=== PATIENT | female | born 1950 | race Caucasian/White ===

== ENCOUNTER → 2016-02-17 | Outpatient (CLI) | payer MEDICARE ==
--- NOTE | 2016-02-17 10:05 | XR ---
EXAMINATION TYPE: XR sacrum coccyx DATE OF EXAM: 02/17/2016 9:45 AM COMPARISON: NONE HISTORY: Low back pain following fall TECHNIQUE: 3 views sacrum and coccyx FINDINGS: Sacroiliac joint vacuum phenomenon and degenerative changes are noted. No suspicious fractu res are evident. IMPRESSION: 1. Normal sacrum and coccyx. 2. Sacroiliac joint degenerative changes
--- NOTE | 2016-02-17 10:07 | XR ---
EXAMINATION TYPE: XR lumbar spine 2 or 3V DATE OF EXAM: 02/17/2016 9:44 AM COMPARISON: NONE HISTORY: Fall, low back pain TECHNIQUE: 3 view lumbar spine FINDINGS: Postsurgical changes are present L2-L3 with pedicle screws and fixation rods. Laminectomies have been performed at L2, L3, L4. Bone buttressing is present laterally. Disc spacers present L3-L4 . L5 lumbar level is poorly visualized. There may be fusion of L5 with S1 and partial fusion of L4 wi th L5. Vacuum disc phenomenon is present L1-L2 IMPRESSION: Lumbar spine degenerative changes. Congenital anomalies may be present. No acute abnormal ity is evident.
--- NOTE | 2016-02-17 10:08 | XR ---
EXAMINATION TYPE: XR pelvis AP view DATE OF EXAM: 02/17/2016 9:44 AM COMPARISON: NONE HISTORY: Fall, pain TECHNIQUE: Single AP pelvis FINDINGS: Sacroiliac joint degenerative changes are present. Symphysis pubis appears within normal li mits. No acute fractures are evident. Femoral heads articulate with the acetabulum. IMPRESSION: 1. No acute osseous abnormality pelvis
== END | disposition home or self-care (01) ==
LOC: RADXRMAIN 09:13
PROVIDERS: ATTEND Family Medicine
DX: M53.3 Sacrococcygeal disorders, not elsewhere classified (principal); M51.36 Other intervertebral disc degeneration, lumbar region
CPT/HCPCS: 72100; 72170; 72220

== ENCOUNTER 2016-03-22 08:50 | Day surgery (SDC) | payer MEDICARE ==
[~2016-03-22 08:50] MED LIST: LACTATED RINGERS 1,000 ML IV SCH
[2016-03-22] MEDS ORDERED: LIDOCAINE 1% 20 ML VIAL (10MG/ML) FOR IV START INTRADERMA ONE (08:56)
[2016-03-22 09:20] VITALS: TEMP 97.9
[2016-03-22 09:20] LABS: Glucose,Whole Blood 122 mg/dL (75-99)
[2016-03-22] MEDS ORDERED: MIDAZOLAM 2 MG/2 ML VIAL ONE (09:44)
[2016-03-22] MEDS ORDERED: fentaNYL (PF) 50 MCG/ML 2 ML AMP ONE (09:44)
[2016-03-22] MEDS ORDERED: IOHEXOL 180 MG/ML 1 ML ML ONE (09:44)
--- NOTE | 2016-03-22 10:25 | P.PCN ---
Date of Procedure: 03/22/16 Procedure(s) Performed: PREOPERATIVE DIAGNOSIS: 1- failed back surgery syndrome lumbar area. 2-opioid Tolerance POSTOPERATIVE DIAGNOSIS: Same as preoperative diagnosis. PROCEDURE 1. Intrathecal pain pump trial under fluoroscopy guidance 2. Lumbar epidurogram. ANESTHESIA: Local with 1% lidocaine 3 ml and IV sedation with Versed 2 mg , and fentanyle 100 Mcg EBL: Minimal PROCEDURE INDICATION: The patient with low back pain and radiculitis symptoms unresponsive to conservative treatment. Patient had multiple pain management interventions failed to control her pain, patient had a spinal cord stimulator trial, and it was not successful, and interview patient currently on fentanyl patch 50 mcg and Percocet 7.5/325 and patient continued to have severe low back pain, patient will be good candidate to have intrathecal pain pump Fluoroscopy was used to optimize visualization of the needle placement and to maximize safety. PROCEDURE DESCRIPTION / TECHNIQUE: The patient was seen and identified in the preoperative area. Risks, benefits , complications including but not limited to infections ,bleeding ,allergic reaction to the medications ,nerve damage and not complete pain releife , and alternatives were discussed with the patient. The patient agreed to proceed with the procedure and signed the consent. IV was started, and vital signs were stable. Patient was taken to the OR and time out was completed. The patient was placed in the prone position on procedure table and a pillow was placed under the abdomen to reduce lumbar lordosis. The lumbosacral area was prepped and draped in the usual sterile fashion.ere closely monitored during the procedure. Conscious sedation was used during the procedure to decrease patients anxiety. Vital signs was monitered during the entire procedure. Using anterior-posterior fluoroscopy, the L1-2 interlaminar space was identified and the skin over this site was marked and then infiltrated with 1% lidocaine subcutaneously. Subsequently, a 22-gauge quinti type needle was inserted and advanced toward the intrathecal space ,there was positive cerebrospinal fluid, and it was clear fluid , I checked the needle placement with AP and lateral fluoroscopy. The correct needle position in the intrathecal space was verified with the injection of 2 mL of the water soluble contrast dye Omnipaque 180 contrast and observing an excellent spread of the dye, in the absence of paresthesia and in the presence of free flow of cerebrospinal fluid Dilaudid 0.5 mg and 2 ml of preservative free Normal Saline, mixed together and the total volume was 2.5 ML solution was injected . Needle was withdrawn intact, skin was cleansed, and bandages were applied. COMPLICATIONS: None DISPOSITION / PLANS: The patient was placed in a supine position and transferred to the recovery area in a stable condition for observation. There was no evidence of lower extremity motor or sensory deficit after the procedure. Patient was discharged from the recovery room after meeting discharge criteria. Home discharge instructions were given to the patient by the staff. The patient was reexamined prior to discharge. The patient will schedule a follow up in the clinic in 2-4 weeks.
[2016-03-22] MEDS ORDERED: LACTATED RINGERS 1,000 ML IV ONE (10:28)
--- NOTE | 2016-03-22 10:28 | FL ---
EXAMINATION TYPE: FL guided pain mgmt statistic DATE OF EXAM: 03/22/2016 10:21 AM HISTORY: Flouroscopy time 23 seconds of fluoroscopy provided. IMPRESSION: 1. Fluoroscopy time.
[2016-03-22 11:01] VITALS: RESP 16
[2016-03-22] MEDS ORDERED: oxyCODONE-APAP 10-325MG 1 EACH TAB PO PRN (12:08)
[2016-03-22] MEDS ORDERED: oxyCODONE-APAP 5-325MG 1 EACH TAB PO ONE (13:12)
[2016-03-22] MEDS ORDERED: oxyCODONE-APAP 5-325MG 1 EACH TAB PO STA (13:18)
[2016-03-22 13:47] VITALS: BP 115/58; PULSE 80
== END 2016-03-22 14:04 | disposition home or self-care (01) ==
LOC: ORPAIN 08:50
PROVIDERS: ATTEND Specialist
DX: M96.1 Postlaminectomy syndrome, not elsewhere classified (principal); Z79.891 Long term (current) use of opiate analgesic; M54.5 Low back pain; M54.16 Radiculopathy, lumbar region
CPT/HCPCS: 99152; 99153; 62350; J2250; Q9965; J3010

== ENCOUNTER → 2016-03-24 | Outpatient (CLI) | payer MEDICARE ==
[2016-03-24 10:41] VITALS: BP 104/60; PULSE 80; RESP 14; TEMP 97.6
--- NOTE | 2016-03-24 12:24 | P.PN ---
Progress Note - Text Patient returns for followup for chronic back pain secondary to postlaminectomy syndrome. Patient recently underwent IT trial with Dilaudid with Dr. Pickering, which provided some relief for approximately five hours' interval. Patient states that she had excellent relief (0/10) pain for the time that she was in the hospital and until she went to bed, until she woke up at 3 AM with severe pain as she had not taken her medications all day. Patient denies adverse drug effects from medications. Today, pt denies new-onset weakness, bowel/ bladder incontinence, or any other signs or symptoms of cauda equina syndrome. There are no signs of acute intoxication, and no indications of medication diversion or overuse. In addition to above, 13-point review of systems is also negative for chest pain , shortness of breath, changes in vision, changes in hearing, new onset weakness , abdominal pain, diarrhea, extreme fatigue, malaise, fever, skin changes, homicidal or suicidal ideation, or bowel or bladder incontinence. Vital Signs: Reviewed in EMR Gen: WDWN, AAOx3, NAD HEENT: NCAT, EOMI, hearing grossly normal Pulm: resp unlabored Abd: soft, NT, ND Neck: supple, trachea midline ROM in flexion lumbar spine: reduced ROM in extension lumbar spine: reduced Lumbar paravertebral tenderness: + Facet loading: ++ bilateral SI joint tenderness: + Norm's test: + R side Straight leg raise: neg bilateral Lower extremity: decreased ROM dorsiflexion/plantarflexion strength, hip flexion/extension, and knee flexion/extension secondary to pain Neuro: CN II-XII grossly intact, muscle strength lower extremities PRESERVED Imaging: Reviewed in EMR Assessment: 1. lumbar PLPS 2. lumbar spondylosis without myelopathy 3. chronic pain syndrome Plan: 1. Explanation: Opioid and psychological risk scores were reviewed. Diagnoses , prognoses, and multiple treatment options including but not limited to physical therapy, interventional therapies, adjuvant medical therapies, narcotic medication therapies, and surgery were discussed with the patient and all questions were answered to the patient's satisfaction. 2. Opioid agreement: Patient has previously signed narcotic agreement, and was orally counseled to not overuse, abuse, divert, or cell medications, and to take them as prescribed by only 1 healthcare provider. The patient was also counseled to store opioid medications in a safe and preferably locked location. Patient was also counseled against driving or operating heavy equipment while using narcotic medications and also to not use alcohol or any illicit or recreational drugs. The patient verbalized understanding that lack of compliance with any of the above and likely result in failure to renew narcotic prescriptions, possible discharge from the clinic, and possible legal ramifications thereafter if indicated. 3. Counseling: The patient was counseled extensively on SMOKING CESSATION, BODY MASS INDEX, EXERCISE. Specifically, the patient was instructed regarding the importance of smoking cessation, obesity, and exercise in the context of both chronic pain and overall health. 4. Procedures: intrathecal pump permanent placement next week with Dr. Jannie Farooq (patient understands all risks, benefits, and alternatives to procedure, including possibility of withdrawal if there is a problem with the pump or catheter) 5. Consultations: None 6. Investigations: None 7. Medications: none prescribed 8. Disposition: f/u for ITP permanent as scheduled
== END | disposition home or self-care (01) ==
LOC: PNWHC3 09:47
PROVIDERS: ATTEND Anesthesiology
DX: M96.1 Postlaminectomy syndrome, not elsewhere classified (principal); M47.816 Spondylosis without myelopathy or radiculopathy, lumbar region; G89.4 Chronic pain syndrome
CPT/HCPCS: 99211

== ENCOUNTER 2016-04-01 10:40 | Day surgery (SDC) | payer MEDICARE ==
[2016-03-30 15:20] VITALS: BMI 44.0
[~2016-04-01 10:40] MED LIST changes: +DEXAMETHASONE SOD PHOSPHATE 10 MG/ML 1 ML VIAL IV ONE; +HYDROmorphone 1 MG/ML 1 ML SYRINGE IVP PRN; -LACTATED RINGERS 1,000 ML IV SCH; +MIDAZOLAM 2 MG/2 ML VIAL IV PRN; +ONDANSETRON 4 MG/2 ML VIAL IVP ONE
[2016-04-01] MEDS ORDERED: ceFAZolin 2 GM in SODIUM CHLORIDE 0.9% 100 ML IVPB ONE (11:25)
[2016-04-01] MEDS ORDERED: LACTATED RINGERS 1,000 ML IV SCH (11:30)
[2016-04-01] MEDS ORDERED: LIDOCAINE 1% 20 ML VIAL (10MG/ML) FOR IV START INTRADERMA ONE (11:50)
[2016-04-01] MEDS: LACTATED RINGERS 1,000 ML IV SCH (11:50)
[2016-04-01 12:03] LABS: Basophils % (A) 0 %; CH 30.8; Eosinophils # (A) 0.4 k/uL (0-0.7); Eosinophils % (A) 4 %; HCT 41.1 % (34.0-46.0); HGB 13.4 gm/dL (11.4-16.0); Luc # (Auto) 0.14; Luc % (Auto) 2; Lymphocytes # (A) 1.2 k/uL (1.0-4.8); Lymphocytes % (A) 13 %; MCH 29.7 pg (25.0-35.0); MCHC 32.7 g/dL (31.0-37.0); MCV 90.8 fL (80.0-100.0); Mean Platelet Volume 6.6; Monocytes # (A) 0.5 k/uL (0-1.0); Monocytes % (A) 5 %; Neutrophils % (A) 76 %; RBC 4.52 m/uL (3.80-5.40); RDW 14.1 % (11.5-15.5); WBC 9.3 k/uL (3.8-10.6); WBC (Perox) 9.74
[2016-04-01 12:04] LABS: Glucose,Whole Blood 122 mg/dL (75-99)
[2016-04-01] MEDS ORDERED: PROPOFOL 10 MG/ML 20 ML VIAL IV ONE (13:17)
[2016-04-01] MEDS ORDERED: LIDOCAINE 1% INJ 10MG/ML (20 ML MDV) ONE (13:17)
[2016-04-01] MEDS ORDERED: MIDAZOLAM 2 MG/2 ML VIAL ONE (13:17)
[2016-04-01] MEDS ORDERED: fentaNYL (PF) 50 MCG/ML 2 ML AMP ONE (13:17)
[2016-04-01] MEDS ORDERED: LIDOCAINE 2%-EPI 1:100,000 20 ML VIAL SUBMUCOSAL ONE (13:17)
[2016-04-01] MEDS ORDERED: SUCCINYLCHOLINE CHLORIDE 100 MG/5 ML SYR IV ONE (13:17)
[2016-04-01] MEDS ORDERED: ePHEDrine 50 MG/ML 1 ML AMP ONE (13:17)
[2016-04-01] MEDS ORDERED: PHENYLEPHRINE-0.9% NACL SYG 1 MG/10 ML SYRINGE ONE (13:17)
[2016-04-01] MEDS ORDERED: GLYCOPYRROLATE 0.2 MG/ML 2 ML VIAL ONE (13:17)
[2016-04-01 15:18] VITALS: RESP 16
--- NOTE | 2016-04-01 15:27 | P.PCN ---
Date of Procedure: 04/01/16 Procedure(s) Performed: Preoperative diagnosis=1-failed back surgery syndrome and lumbar area. 2-. opiod Tolerance. Postoperative diagnosis= same as preop Operation= 1-implantation of programmable intrathecal pain pump. 2-implantation of Tunneled intrathecal catheter. Under fluoroscopy guidance. 3-electronic analysis of intrathecal pain pump with pain pump fiiling . Anesthesia= general endotracheal intubation Condition= stable. Estimated blood loss= 15 mL. Complications= none Description of the procedure= this is 65 years female with a chronic history of severe and low back pain patient had lumbar laminectomy and fusion surgery, which is failed to control her pain, and she had multiple pain management interventions procedures and all failed to control her pain, and patient had" stimulator trial and attempt to control her pain ,and patient currently on pain medication fentanyl patch 50 g every 72, and Percocet 7.5/325 every 6 hours, and patient continued to have severe low back pain with radiation to the lower extremity, patient passed the psychological screening and there was no contraindication to proceeding with the pump implantation, he had a good result with the intrathecal opioid trial, patient had them 0.5 mg of intrathecal Dilaudid and her pain dropped from 10/10 before intrathecal Dilaudid injection , at least dropped to 0-2/10 , at this reason patient was a good candidate to have intrathecal pain pump implant , the risks and benefits and alternative, of the procedure including but not limited to, risk of infection and bleeding, and granuloma formation, malfunction of the pump and catheter, and the need to replace the pump every few years , discussed with the patient and he agreed with proceeding., Patient received 2 g of Ancef in the preoperative Patient taken to the operating room placed in prone position stager done by anesthesia department, the back and right buttock area With DuraPrep 3, and under the technique at L2-3 interlaminar space local infiltration of the skin and subcutaneous tissue with mixture of Marcaine and lidocaine injected, and then the 14-gauge BrightContexttronic kit advanced at the L2 interlaminar space there was positive cerebrospinal fluid was no heme and there was no paresthesia, confirmation of the placement of the needle confirmed with injection of Omnipaque then 22-gauge intrathecal catheter advanced slowly under fluoroscopy up to the upper level of T10 vertebra and then after the which attenuated placement and the custom placement with AP and LATERAL view , then after the incision done around the location of the needle around 2 inches above the needle and 2 inches below the knee the and dissection done until the lumbar paraspinous fascia is visualized then purse string suture is created within the fascia surrounding the needle shaft, then after that pocket created in the right buttock area after local infiltration with a mixture of local anesthetic and an incision made in the right buttock area and then blunt dissection done to create a pocket for the pump and then after that the "hemostasis obtained then a tunneling device is used to create a tunnel between the paraspinous incision and to the pocket in the right buttock area, then after that the spinal needle removed and then the catheter secured using anchoring device and in the anchors secured to the paravertebral fascia, then the catheter passed through the tunneling device to the pocket in the right buttock area and its connected to the pump and the pump secured in the right buttock using Nurolon sutures and before the catheter was connected to the pump we showed FreeFlow of the cerebrospinal fluid from the catheter, and also the pump was filled with the intrathecal medication, Dilaudid 3 mg/ml . Then after that the spinal incision was closed using 2-0 Vicryl sutures with interrupted sutures to close the fascia, then the skin was closed using 3-0 Vicryl continuous sutures., And the same done for the right buttock incision the pocket incision in the skin was most with the william ,and a dressing applied and patient tolerated the procedure well. Description of the pump programming= the catheter length of the catheter was 86.4 cm ,removed from the catheter 49.0 ,and we implanted 37.4. cm the total catheter volume was 0,144 ml, ER estimated 81 months, the concentration of the medication was Dilaudid 3 mg per mL and patient will receive a daily dose of Dilaudid 0.75 mg per day, and he received a bolus of the medication 1,25 (0, 4mg Dilaudid actual bolus and 0.85 mg to fill up the catheter and the pump tubing), patient tolerated the procedure well without any complications And patient will be admitted to observation 23 hours admission,, patient will continue to use Percocet 7.5/325 every 6 hours when necessary for breakthrough pain and she will use Keflex 500 mg every 6 hours for 10 days and she will be seen in the pain clinic in 6 days
[2016-04-01] MEDS ORDERED: oxyCODONE-APAP 7.5-325MG 1 EACH TAB PO PRN ×2 (15:30→15:44)
[2016-04-01] MEDS ORDERED: LORazepam 1 MG TAB PO PRN (15:44)
[2016-04-01] MEDS ORDERED: BACLOFEN 10 MG TAB PO PRN (15:44)
[2016-04-01 16:33] LABS: Glucose,Whole Blood 141 mg/dL (75-99)
[2016-04-01] MEDS: GABAPENTIN 300 MG CAP PO SCH ×2 (18:04→21:16)
[2016-04-01] MEDS: DULoxetine HCL 60 MG CAPSULE.DR PO SCH (20:21)
[2016-04-01] MEDS: OXYBUTYNIN CHLORIDE 5 MG TAB PO SCH (20:21)
[2016-04-01] MEDS ORDERED: ATORVASTATIN 20 MG TAB PO SCH (21:00)
[2016-04-01] MEDS ORDERED: ZOLPIDEM 10 MG TAB PO SCH (21:00)
[2016-04-02 01:06] VITALS: BP 112/55; PULSE 94; TEMP 98.4
[2016-04-02] MEDS: LACTATED RINGERS 1,000 ML IV SCH ×2 (05:36→05:38)
[2016-04-02] MEDS: GABAPENTIN 300 MG CAP PO SCH (07:24)
[2016-04-02] MEDS: DULoxetine HCL 60 MG CAPSULE.DR PO SCH (07:24)
[2016-04-02] MEDS: OXYBUTYNIN CHLORIDE 5 MG TAB PO SCH (07:25)
[2016-04-02] MEDS ORDERED: metFORMIN 500 MG TAB PO SCH (07:30)
[2016-04-02] MEDS ORDERED: LOSARTAN-HCTZ 50-12.5 MG 1 EACH TAB PO SCH (09:00)
[2016-04-02] MEDS ORDERED: FUROSEMIDE 10 MG TAB PO SCH (09:00)
[2016-04-02] MEDS ORDERED: amLODIPine 10 MG TAB PO SCH (09:00)
[2016-04-02] MEDS ORDERED: ARIPiprazole 5 MG TAB PO SCH (09:00)
[2016-04-02] MEDS ORDERED: MULTIVITAMINS, THERA 1 EACH TAB PO SCH (12:00)
== END 2016-04-02 14:44 ==
LOC: ORPAIN 10:40 → 3SUR 15:54 → ORPAIN 04-02 14:44
PROVIDERS: ATTEND Specialist
DX: M96.1 Postlaminectomy syndrome, not elsewhere classified (principal); Z79.891 Long term (current) use of opiate analgesic; I10 Essential (primary) hypertension; E11.9 Type 2 diabetes mellitus without complications; Z79.84 Long term (current) use of oral hypoglycemic drugs; Z79.899 Other long term (current) drug therapy
CPT/HCPCS: 85025; 62350; 62362; J2250; J1100; J0690; J2405; J2001; J3010; J2370; J0330; J2704; C1755; C1772

== ENCOUNTER → 2016-04-06 | Outpatient (CLI) | payer MEDICARE ==
[2016-04-06 12:37] VITALS: BP 93/58; PULSE 93; RESP 16; TEMP 98.4
--- NOTE | 2016-04-06 13:12 | P.PN ---
Subjective This is for visit for this 65 years old female chronic history of severe low back pain diagnosed with failed back surgery syndrome, opiate tolerance, patient was getting fentanyl patch 75 g every 72 hours and Percocet 7.5/325 every 6 hours, Neurontin 600 mg every 6 hours, baclofen 10 mg every 8 hours when necessary, she had intrathecal pain pump implanted last week, and she is here today for follow-up visit and to check on her incision, the bolus incision the lumbar and the right buttock incisions healing appropriately, but is no erythema no swelling or discharge, and I removed the wliliam, under sterile technique, and then Band-Aid applied, the intrathecal pain pump interrogated and showed patient had enough medication for 3 months, patient will follow with the pain clinic in 2 months, and she was given prescriptions refilled for her medication, and patient was instructed to discontinue fentanyl patch, will continue to use Neurontin 600 mg every 6 hours, baclofen 10 mg every 8 hours when necessary for muscle spasm, Objective - Vital Signs Vital signs: Vital Signs Temp 98.4 F 04/06/16 12:32 Pulse 93 04/06/16 12:32 Resp 16 04/06/16 12:32 BP 93/58 04/06/16 12:32 Pulse Ox 93 L 04/06/16 12:32 Intake & Output 04/05/16 04/06/16 04/06/16 18:59 06:59 18:59 Weight 106.141 kg
== END | disposition home or self-care (01) ==
LOC: PNWHC3 11:42
PROVIDERS: ATTEND Specialist
DX: M96.1 Postlaminectomy syndrome, not elsewhere classified (principal); Z96.89 Presence of other specified functional implants; Z79.899 Other long term (current) drug therapy
CPT/HCPCS: 62367

== ENCOUNTER 2016-05-30 13:12 | Inpatient (IN) | payer MEDICARE ==
[2016-05-30 13:28] LABS: Glucose,Whole Blood 134 mg/dL (75-99)
--- NOTE | 2016-05-30 13:46 | ED ---
Altered Mental Status HPI - General Chief Complaint: Neuro Symptoms/Deficit Stated Complaint: alter mental status Time Seen by Provider: 05/30/16 13:27 Source: patient, family Mode of arrival: ambulatory Limitations: no limitations - History of Present Illness Initial Comments: This patient is a 65-year-old woman brought to be evaluated for change in mental status. The patient had reportedly had physical therapy and then had been resting. Her then went to speak with her and she was having a hard time staying awake, she had leaned to one side and her head was bobbing. In addition when they tried to get her up she was very unsteady and seemed like she would fall. The patient is denying any pain other than some chronic back pain. Patient denies dyspnea. Patient furthermore denying focal weakness. MD Complaint: altered mental status, decreased responsiveness -: hour(s) Severity: moderate Associated Symptoms: denies other symptoms - Related Data Home Medications Medication Instructions Recorded Confirmed DULoxetine HCL [Cymbalta] 60 mg PO BID 09/24/14 05/30/16 LORazepam [Ativan] 1 mg PO TID PRN 09/24/14 05/30/16 Simvastatin [Zocor] 40 mg PO HS 09/24/14 05/30/16 Losartan/Hydrochlorothiazide 1 tab PO QAM 10/15/14 05/30/16 [Losartan-Hctz 100-25 mg Tab] ARIPiprazole [Abilify] 5 mg PO QAM 03/18/15 05/30/16 Topiramate [Topamax] 25 mg PO BID 05/05/15 05/30/16 amLODIPine [Norvasc] 10 mg PO QAM 05/05/15 05/30/16 metFORMIN HCL [Glucophage] 500 mg PO DAILY 05/05/15 05/30/16 Oxybutynin Chloride [Ditropan] 5 mg PO BID 12/03/15 05/30/16 Multivitamins, Thera [Multivitamin 0.5 tab PO DAILY 03/30/16 05/30/16 (formulary)] Furosemide [Lasix] 10 mg PO DAILY 05/30/16 05/30/16 Gabapentin 600 mg PO TID 05/30/16 05/30/16 Pain Pump 1 pump SQ-PUMP DAILY PRN 05/30/16 05/30/16 oxyCODONE-APAP 7.5-325MG [Percocet 1 tab PO HS PRN 05/30/16 05/30/16 7.5-325 mg] Previous Rx's Medication Instructions Recorded Baclofen 10 mg PO RT-Q8H PRN #90 tablet 04/06/16 Allergies Allergy/AdvReac Type Severity Reaction Status Date / Time No Known Allergies Allergy Verified 05/30/16 14:55 Review of Systems ROS Statement: Those systems with pertinent positive or pertinent negative responses have been documented in the HPI. ROS Other: All systems not noted in ROS Statement are negative. Constitutional: Reports: weakness. Denies: fever, chills Eyes: Denies: vision change Respiratory: Denies: cough, dyspnea Cardiovascular: Denies: chest pain, orthopnea, edema Gastrointestinal: Denies: abdominal pain, vomiting, diarrhea Musculoskeletal: Reports: back pain (Chronic) Skin: Denies: rash Neurological: Reports: weakness (Generalized), confusion. Denies: headache, numbness Past Medical History Past Medical History: Diabetes Mellitus, Fibromyalgia, Hypertension, Osteoarthritis (OA), Sleep Apnea/CPAP/BIPAP Additional Past Medical History / Comment(s): TREMORS,BACK PAIN, LUMBAR DDD, BLEED BEHIND LT EYE-RESOLVED, DIVERTICULAR DISEASE, HEPATITIS A AT AGE 8 History of Any Multi-Drug Resistant Organisms: None Reported Past Surgical History: Back Surgery, Breast Surgery, Tubal Ligation Additional Past Surgical History / Comment(s): REPAIR DETACHED RETINA-LEFT EYE.LT BREAST BX,COLONOSCOPY,PAIN CLINIC PROCEDURES, FABI CATARACTS,. EYE SX. SPINAL CORD STIMULATOR -SINCE REMOVED. PERMANENT PAIN PUMP. Past Anesthesia/Blood Transfusion Reactions: No Reported Reaction Past Psychological History: Anxiety, Bipolar, Depression Smoking Status: Former smoker Past Alcohol Use History: None Reported Additional Past Alcohol Use History / Comment(s): SMOKED FOR 40 YEARS 1PPD. QUIT SMOKING 11 YEARS AGO. Past Drug Use History: None Reported - Past Family History Sister(s) Family Medical History: Cancer Additional Family Medical History / Comment(s): LUNG CANCER,BRAIN CANCER Father Family Medical History: Myocardial Infarction ([place]) Additional Family Medical History / Comment(s): DEPRESSION AT AGE 70 Mother Family Medical History: Myocardial Infarction ([place]) Additional Family Medical History / Comment(s): AT AGE 65 WITH [place] General Exam Limitations: no limitations General appearance: alert, in no apparent distress, obese Head exam: Present: atraumatic, normocephalic Eye exam: Present: normal appearance. Absent: scleral icterus, conjunctival injection ENT exam: Present: mucous membranes dry Neck exam: Present: normal inspection, full ROM Respiratory exam: Present: normal lung sounds bilaterally. Absent: respiratory distress, wheezes, rales, rhonchi, stridor Cardiovascular Exam: Present: regular rate, normal rhythm, normal heart sounds. Absent: systolic murmur, diastolic murmur, rubs, gallop GI/Abdominal exam: Present: soft. Absent: distended, tenderness, guarding, rebound Extremities exam: Present: normal inspection, normal capillary refill. Absent: pedal edema, calf tenderness Neurological exam: Present: alert, oriented X3, CN II-XII intact, other (The patient is not cooperative with the neurologic exam.) Skin exam: Present: warm, dry, intact, normal color. Absent: rash Course Vital Signs 05/30/16 05/30/16 05/30/16 13:13 15:02 16:03 Temperature 97.1 F L Pulse Rate 60 67 90 Respiratory 20 18 18 Rate Blood Pressure 88/49 122/81 131/82 O2 Sat by Pulse 86 L 93 L 97 Oximetry 05/30/16 05/30/16 05/30/16 18:22 19:00 20:00 Temperature Pulse Rate 82 77 89 Respiratory 18 18 18 Rate Blood Pressure 92/51 135/81 128/56 O2 Sat by Pulse 95 99 96 Oximetry Medical Decision Making - Medical Decision Making Patient is 65-year-old woman brought for altered mental status. The workup does not reveal an acute stroke. Her exam appears more consistent with possible medication interaction, though will admit to have neurology consultation, also to begin treatment for urinary tract infection. - Lab Data Result diagrams: 05/30/16 13:55 05/30/16 13:55 Lab Results 05/30/16 05/30/16 05/30/16 Range/Units 13:27 13:55 13:55 WBC 8.4 (3.8-10.6) k/uL RBC 4.05 (3.80-5.40) m/uL Hgb 12.8 (11.4-16.0) gm/dL Hct 36.9 (34.0-46.0) % MCV 91.1 (80.0-100.0) fL MCH 31.6 (25.0-35.0) pg MCHC 34.7 (31.0-37.0) g/dL RDW 13.1 (11.5-15.5) % Plt Count 241 (150-450) k/uL Neutrophils % 72 % Lymphocytes % 16 % Monocytes % 6 % Eosinophils % 4 % Basophils % 0 % Neutrophils # 6.1 (1.3-7.7) k/uL Lymphocytes # 1.4 (1.0-4.8) k/uL Monocytes # 0.5 (0-1.0) k/uL Eosinophils # 0.3 (0-0.7) k/uL Basophils # 0.0 (0-0.2) k/uL Sodium (137-145) mmol/L Potassium (3.5-5.1) mmol/L Chloride (98-107) mmol/L Carbon Dioxide (22-30) mmol/L Anion Gap mmol/L BUN (7-17) mg/dL Creatinine (0.52-1.04) mg/dL Est GFR (MDRD) Af Amer (>60 ml/min/1.73 sqM) Est GFR (MDRD) Non-Af (>60 ml/min/1.73 sqM) Glucose (74-99) mg/dL POC Glucose (mg/dL) 134 H (75-99) mg/dL POC Glu Hospice Art Therapist ID [address] Glu mg/dL mg/dL Hemoglobin A1c (4.2-6.1) % Calcium (8.4-10.2) mg/dL Total Bilirubin (0.2-1.3) mg/dL AST (14-36) U/L ALT (9-52) U/L Alkaline Phosphatase (38-126) U/L Ammonia <9 (<30) umol/L Troponin I (0.000-0.034) ng/mL Total Protein (6.3-8.2) g/dL Albumin (3.5-5.0) g/dL Urine Color Urine Appearance (Clear) Urine pH (5.0-8.0) Ur Specific [place] (1.001-1.035) Urine Protein (Negative) Urine Glucose (UA) (Negative) Urine Ketones (Negative) Urine Blood (Negative) Urine Nitrite (Negative) Urine Bilirubin (Negative) Urine Urobilinogen (<2.0) mg/dL Ur Leukocyte Esterase (Negative) Urine RBC (0-5) /hpf Urine WBC (0-5) /hpf Urine WBC Clumps (None) /hpf Hyaline Casts (0-2) /lpf Urine Mucus (None) /hpf Urine Opiates Screen (NotDetected) Ur Oxycodone Screen (NotDetected) Urine Methadone Screen (NotDetected) Ur Propoxyphene Screen (NotDetected) Ur Barbiturates Screen (NotDetected) U Tricyclic Antidepress (NotDetected) Ur Phencyclidine Scrn (NotDetected) Ur Amphetamines Screen (NotDetected) U Methamphetamines Scrn (NotDetected) U Benzodiazepines Scrn (NotDetected) Urine Cocaine Screen (NotDetected) U Marijuana (THC) Screen (NotDetected) 05/30/16 05/30/16 05/30/16 Range/Units 13:55 13:55 13:55 WBC (3.8-10.6) k/uL RBC (3.80-5.40) m/uL Hgb (11.4-16.0) gm/dL Hct (34.0-46.0) % MCV (80.0-100.0) fL MCH (25.0-35.0) pg MCHC (31.0-37.0) g/dL RDW (11.5-15.5) % Plt Count (150-450) k/uL Neutrophils % % Lymphocytes % % Monocytes % % Eosinophils % % Basophils % % Neutrophils # (1.3-7.7) k/uL Lymphocytes # (1.0-4.8) k/uL Monocytes # (0-1.0) k/uL Eosinophils # (0-0.7) k/uL Basophils # (0-0.2) k/uL Sodium 138 (137-145) mmol/L Potassium 4.2 (3.5-5.1) mmol/L Chloride 97 L (98-107) mmol/L Carbon Dioxide 28 (22-30) mmol/L Anion Gap 13 mmol/L BUN 51 H (7-17) mg/dL Creatinine 1.60 H (0.52-1.04) mg/dL Est GFR (MDRD) Af Amer 39 (>60 ml/min/1.73 sqM) Est GFR (MDRD) Non-Af 32 (>60 ml/min/1.73 sqM) Glucose 119 H (74-99) mg/dL POC Glucose (mg/dL) (75-99) mg/dL POC Glu Hospice Art Therapist ID Estimated [facility] Glu mg/dL 131 mg/dL Hemoglobin A1c 6.2 H (4.2-6.1) % Calcium 9.6 (8.4-10.2) mg/dL Total Bilirubin 0.9 (0.2-1.3) mg/dL AST 43 H (14-36) U/L ALT 22 (9-52) U/L Alkaline Phosphatase 40 (38-126) U/L Ammonia (<30) umol/L Troponin I 0.013 (0.000-0.034) ng/mL Total Protein 7.6 (6.3-8.2) g/dL Albumin 4.2 (3.5-5.0) g/dL Urine Color Urine Appearance (Clear) Urine pH (5.0-8.0) Ur Specific [place] (1.001-1.035) Urine Protein (Negative) Urine Glucose (UA) (Negative) Urine Ketones (Negative) Urine Blood (Negative) Urine Nitrite (Negative) Urine Bilirubin (Negative) Urine Urobilinogen (<2.0) mg/dL Ur Leukocyte Esterase (Negative) Urine RBC (0-5) /hpf Urine WBC (0-5) /hpf Urine WBC Clumps (None) /hpf Hyaline Casts (0-2) /lpf Urine Mucus (None) /hpf Urine Opiates Screen (NotDetected) Ur Oxycodone Screen (NotDetected) Urine Methadone Screen (NotDetected) Ur Propoxyphene Screen (NotDetected) Ur Barbiturates Screen (NotDetected) U Tricyclic Antidepress (NotDetected) Ur Phencyclidine Scrn (NotDetected) Ur Amphetamines Screen (NotDetected) U Methamphetamines Scrn (NotDetected) U Benzodiazepines Scrn (NotDetected) Urine Cocaine Screen (NotDetected) U Marijuana (THC) Screen (NotDetected) 05/30/16 Range/Units 14:55 WBC (3.8-10.6) k/uL RBC (3.80-5.40) m/uL Hgb (11.4-16.0) gm/dL Hct (34.0-46.0) % MCV (80.0-100.0) fL MCH (25.0-35.0) pg MCHC (31.0-37.0) g/dL RDW (11.5-15.5) % Plt Count (150-450) k/uL Neutrophils % % Lymphocytes % % Monocytes % % Eosinophils % % Basophils % % Neutrophils # (1.3-7.7) k/uL Lymphocytes # (1.0-4.8) k/uL Monocytes # (0-1.0) k/uL Eosinophils # (0-0.7) k/uL Basophils # (0-0.2) k/uL Sodium (137-145) mmol/L Potassium (3.5-5.1) mmol/L Chloride (98-107) mmol/L Carbon Dioxide (22-30) mmol/L Anion Gap mmol/L BUN (7-17) mg/dL Creatinine (0.52-1.04) mg/dL Est GFR (MDRD) Af Amer (>60 ml/min/1.73 sqM) Est GFR (MDRD) Non-Af (>60 ml/min/1.73 sqM) Glucose (74-99) mg/dL POC Glucose (mg/dL) (75-99) mg/dL POC Glu Hospice Art Therapist ID Estimated Ave Glu mg/dL mg/dL Hemoglobin A1c (4.2-6.1) % Calcium (8.4-10.2) mg/dL Total Bilirubin (0.2-1.3) mg/dL AST (14-36) U/L ALT (9-52) U/L Alkaline Phosphatase (38-126) U/L Ammonia (<30) umol/L Troponin I (0.000-0.034) ng/mL Total Protein (6.3-8.2) g/dL Albumin (3.5-5.0) g/dL Urine Color Yellow Urine Appearance Cloudy H (Clear) Urine pH 5.5 (5.0-8.0) Ur Specific [place] 1.011 (1.001-1.035) Urine Protein Trace H (Negative) Urine Glucose (UA) Negative (Negative) Urine Ketones Negative (Negative) Urine Blood Trace H (Negative) Urine Nitrite Positive H (Negative) Urine Bilirubin Negative (Negative) Urine Urobilinogen <2.0 (<2.0) mg/dL Ur Leukocyte Esterase Large H (Negative) Urine RBC 3 (0-5) /hpf Urine WBC 49 H (0-5) /hpf Urine WBC Clumps Few H (None) /hpf Hyaline Casts 5 H (0-2) /lpf Urine Mucus Rare H (None) /hpf Urine Opiates Screen Detected H (NotDetected) Ur Oxycodone Screen Detected H (NotDetected) Urine Methadone Screen Not Detected (NotDetected) Ur Propoxyphene Screen Not Detected (NotDetected) Ur Barbiturates Screen Not Detected (NotDetected) U Tricyclic Antidepress Not Detected (NotDetected) Ur Phencyclidine Scrn Not Detected (NotDetected) Ur Amphetamines Screen Not Detected (NotDetected) U Methamphetamines Scrn Not Detected (NotDetected) U Benzodiazepines Scrn Not Detected (NotDetected) Urine Cocaine Screen Not Detected (NotDetected) U Marijuana (THC) Screen Not Detected (NotDetected) - EKG Data -: EKG Interpreted by Me EKG shows normal: sinus rhythm, axis (Normal), intervals (Normal), QRS complexes (Normal) Rate: normal (Rate 74 bpm) Interpretation: nonspecific ST-T wave changes Disposition Clinical Impression: Urinary tract infection, Altered mental status, Dehydration Disposition: ADMITTED IP TO THIS HOSP Condition: Fair
[2016-05-30 14:12] LABS: Basophils % (A) 0 %; CH 30.6; CHCM 33.8; Eosinophils # (A) 0.3 k/uL (0-0.7); Eosinophils % (A) 4 %; HCT 36.9 % (34.0-46.0); HDW 2.43; HGB 12.8 gm/dL (11.4-16.0); Luc # (Auto) 0.21; Luc % (Auto) 3; Lymphocytes # (A) 1.4 k/uL (1.0-4.8); Lymphocytes % (A) 16 %; MCH 31.6 pg (25.0-35.0); MCHC 34.7 g/dL (31.0-37.0); MCV 91.1 fL (80.0-100.0); Mean Platelet Volume 7.4; Monocytes # (A) 0.5 k/uL (0-1.0); Monocytes % (A) 6 %; Neutrophils # (A) 6.1 k/uL (1.3-7.7); Neutrophils % (A) 72 %; RBC 4.05 m/uL (3.80-5.40); RDW 13.1 % (11.5-15.5); WBC 8.4 k/uL (3.8-10.6); WBC (Perox) 8.91
--- NOTE | 2016-05-30 14:29 | CT ---
EXAMINATION TYPE: CT brain wo con DATE OF EXAM: 05/30/2016 2:18 PM COMPARISON: 12/11/2015 HISTORY: 65-year-old female confusion, altered mental status TECHNIQUE: Examination was done in axial plane without intravenous contrast. Coronal and sagittal r econstructions performed. CT DLP: 963.5 mGycm Automated exposure control for dose reduction was used. FINDINGS: There is no evidence of acute intracranial hemorrhage, acute ischemic changes, mass, mass-effect, or extra-axial fluid collection. There is no effacement of cerebral sulci or basal subarachnoid cister ns. There is no hydrocephalus. There is no midline shift. Valadez-white matter distinction is preserv ed. Redemonstrated mild generalized supratentorial volume loss with moderate patchy periventricular and d eep white matter hypodensities. Visualized paranasal sinuses and mastoid air cells are well pneumatized. Pleural banding on the left. IMPRESSION: No acute intracranial abnormality seen. Stable mild atrophy and moderate changes of chronic small ves nj ischemic disease.
[2016-05-30 14:39] LABS: Calcium 9.6 mg/dL (8.4-10.2); Total Bilirubin 0.9 mg/dL (0.2-1.3)
[2016-05-30 14:43] LABS: Total Protein 7.6 g/dL (6.3-8.2)
[2016-05-30 14:48] LABS: Potassium 4.2 mmol/L (3.5-5.1)
--- NOTE | 2016-05-30 15:07 | XR ---
EXAMINATION TYPE: XR chest 1V portable DATE OF EXAM: 05/30/2016 2:46 PM Comparison: 12/12/2015 Clinical History: 65-year-old female confusion, altered mental status Findings: The heart is normal size. Mild atherosclerotic arch calcifications. Mild interstitial prominence and peribronchial cuffing is noted. Strandy atelectasis in the lower lungs. No consolidation or pleural e ffusion seen. Impression: Chronic-appearing changes, possible chronic bronchitis/asthma. No acute process seen.
[2016-05-30 15:21] LABS: Appearance,Urine Cloudy (Clear); Bilirubin,Urine Negative (Negative); Glucose,Urine (UA) Negative (Negative); Ketones,Urine Negative (Negative); Leukocyte Esterase,Urine Large (Negative); Mucus,Urine Rare /hpf; Nitrite,Urine Positive (Negative); PH, Urine 5.5 (5.0-8.0); Particle Count 88262; Protein,Urine Trace (Negative); RBC,Urine 3 /hpf (0-5); Specific Gravity,Urine 1.011 (1.001-1.035); UA Billing (MACRO vs. MICRO) MICRO; Urobilinogen,Urine <2.0 mg/dL (<2.0); WBC,Urine 49 /hpf (0-5)
[2016-05-30] MEDS ORDERED: NALOXONE 0.4 MG/ML 1 ML VIAL IV STA (16:13)
[2016-05-30] MEDS ORDERED: NALOXONE 0.4 MG/ML 1 ML VIAL IV PRN (19:05)
[2016-05-30] MEDS ORDERED: SODIUM CHLORIDE 0.9% 1,000 ML IV ONE (19:11)
[2016-05-30 20:34] LABS: Glucose,Whole Blood 112 mg/dL (75-99)
[2016-05-30] MEDS: INSULIN LISPRO (humaLOG) 300 UNIT/3 ML VIAL SQ SCH (21:14)
[2016-05-30] MEDS: ATORVASTATIN 20 MG TAB PO SCH (21:18)
[2016-05-30] MEDS: SODIUM CHLORIDE 0.9% 1,000 ML IV SCH (21:18)
[2016-05-30] MEDS: GABAPENTIN 300 MG CAP PO SCH (21:18)
[2016-05-30] MEDS: DULoxetine HCL 60 MG CAPSULE.DR PO SCH (21:18)
[2016-05-30] MEDS: OXYBUTYNIN CHLORIDE 5 MG TAB PO SCH (21:19)
[2016-05-30] MEDS: TOPIRAMATE 25 MG TAB PO SCH (21:19)
[2016-05-31 01:53] LABS: Hemoglobin A1C 6.2 % (4.2-6.1)
[2016-05-31 07:35] LABS: Glucose,Whole Blood 89 mg/dL (75-99)
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
[2016-05-31] MEDS: INSULIN LISPRO (humaLOG) 300 UNIT/3 ML VIAL SQ SCH ×4 (08:22→22:08)
[2016-05-31] MEDS: SODIUM CHLORIDE 0.9% 1,000 ML IV SCH ×2 (08:28→22:05)
[2016-05-31] MEDS: GABAPENTIN 300 MG CAP PO SCH ×3 (08:28→22:07)
[2016-05-31] MEDS: DULoxetine HCL 60 MG CAPSULE.DR PO SCH ×2 (08:29→22:07)
[2016-05-31] MEDS: metFORMIN 500 MG TAB PO SCH (08:30)
[2016-05-31] MEDS: OXYBUTYNIN CHLORIDE 5 MG TAB PO SCH ×2 (08:30→22:07)
[2016-05-31] MEDS: ACETAMINOPHEN TAB 500 MG TAB PO PRN ×3 (08:30→17:19)
[2016-05-31] MEDS: FUROSEMIDE 20 MG TAB PO SCH (08:30)
[2016-05-31] MEDS: amLODIPine 10 MG TAB PO SCH (08:31)
[2016-05-31] MEDS: LOSARTAN-HCTZ 50-12.5 MG 1 EACH TAB PO SCH (08:31)
[2016-05-31] MEDS: ARIPiprazole 5 MG TAB PO SCH (08:32)
[2016-05-31] MEDS: TOPIRAMATE 25 MG TAB PO SCH ×2 (08:32→22:07)
[2016-05-31] MEDS ORDERED: LEVOFLOXACIN 500MG-D5W PMX 500 MG in DEXTROSE/WATER 1 100ML.BAG IVPB SCH (09:00)
--- NOTE | 2016-05-31 10:04 | ECHOF ---
Referral Reason:TIA MEASUREMENTS -------- HEIGHT: 154.9 cm WEIGHT: 104.3 kg BP: 113/56 RVIDd: 2.6 cm (< 3.3) IVSd: 1.1 cm (0.6 - 1.1) LVIDd: 3.3 cm (3.9 - 5.3) LVPWd: 1.1 cm (0.6 - 1.1) IVSs: 1.5 cm LVIDs: 2.3 cm LVPWs: 1.4 cm LA Diam: 3.0 cm (2.7 - 3.8) LAESV Index (A-L): 17.27 ml/m Ao Diam: 3.2 cm (2.0 - 3.7) AV Cusp: 2.2 cm (1.5 - 2.6) MV EXCURSION: 21.150 mm (> 18.000) MV EF SLOPE: 55 mm/s (70 - 150) EPSS: 0.3 cm MV E Artemio: 1.08 m/s MV DecT: 279 ms MV A Artemio: 1.42 m/s MV E/A Ratio: 0.76 AV maxP.78 mmHg AV meanP.82 mmHg FINDINGS -------- Sinus rhythm. This was a technically adequate study. The left ventricular size is normal. There is borderline concentric left ventricular hypertrophy. Overall left ventricular systolic function is normal with, an EF between 60 - 65 %. The right ventricle is normal in size and function. Normal LA size by volume 22+/-6 ml/m2. The right atrium is normal in size. There is mild aortic valve sclerosis. Peak/mean gradient across the Aortic Valve is 14.78mmHg / 6.82mmHg. Mild mitral annular calcification present. The tricuspid valve appears structurally normal. The pulmonic valve was not well visualized. The aortic root size is normal. The inferior vena cava is mildly dilated. The pericardium is normal. CONCLUSIONS -------- 1. Sinus rhythm. 2. Peak/mean gradient across the Aortic Valve is 14.78mmHg / 6.82mmHg. 3. Mild mitral annular calcification present. 4. The tricuspid valve appears structurally normal. 5. The pulmonic valve was not well visualized. 6. The aortic root size is normal. 7. The inferior vena cava is mildly dilated. 8. The pericardium is normal. 9. This was a technically adequate study. 10. The left ventricular size is normal. 11. There is borderline concentric left ventricular hypertrophy. 12. Overall left ventricular systolic function is normal with, an EF between 60 - 65 %. 13. The right ventricle is normal in size and function. 14. Normal LA size by volume 22+/-6 ml/m2. 15. The right atrium is normal in size. 16. There is mild aortic valve sclerosis. HR ADVISOR: Sejal Dudley RDCS
--- NOTE | 2016-05-31 10:43 | HP ---
DATE OF ADMISSION: CHIEF COMPLAINT: Garbled speech and not making any sense verbally per . This is a 65-year-old white female who was brought in for mental status changes. She reportedly had physical therapy and had been resting. then went to speak with her and she was having a hard time staying awake and she had garbled speech and bobbing her head. In addition, she tried to get up for very unsteady state and it seems like she nearly would fall. She has a history of chronic back pain. She is on a Dilaudid pump, but she has not had this type of situation before, recently. The severity of her garbled speech was moderate, associated symptoms. Just was the weakness with the garbled speech. Her medications includes that of: 1. Cymbalta 60 b.i.d. 2. Ativan 1 mg 3 times a day. 3. Simvastatin 40 mg daily. 4. Losartan 100/25 daily. 5. Abilify 5 mg daily. 6. Topamax 25 mg a day. 7. Norvasc 10 mg daily, 8. Glucophage 500 daily. 9. Diprivan 5 mg a day. 10. Multiple vitamin. 11. Lasix 10 mg daily. 12. 600 mg at gabapentin 3 times a day. 13. She is on a subcutaneous daily pump and at bedtime she gets one Percocet 7.5/325. Previous medications that she was on was baclofen. She has no known allergies. Her past disease process is severe chronic back pain with previous surgery with persistent back pain that required a pump. She has hypertension history, hyperlipidemia, diabetes mellitus which has been stable, minimal, peripheral neuropathy, major depressive disorder. There is no history of CVA, no history of previous TIA's, no history of myocardial infarction. She does have generalized osteoarthritis also along with fibromyalgia, sleep apnea with CPAP. She has tremors since her previous disease problem. She had hepatitis A at age 8. She has had multiple diverticula. She had retinal bleed of the left eye with some loss of sight. SURGICAL HISTORY: She has had breast surgery for biopsy. She had a tubal ligation. She had retinal repair. She has had a spinal cord stimulator that was unsuccessful and permanently removed and a permanent pain pump placed in. Colonoscopy up to date. SOCIAL HISTORY: A retired middle school principal. No use of alcohol. She is a former smoker, quit about 11 years ago, when she was a 40 year once a day smoker. No reported drug abuse. FAMILY HISTORY: She has a history of brain cancer and lung cancer in the family. Father had a myocardial infarction and was depressed, at the age of 70. Mother had myocardial infarction. She at 65 with SD. REVIEW OF SYSTEMS: CARDIOPULMONARY: No shortness of breath. No chest pain, orthopnea, no paroxysmal nocturnal dyspnea. GI: No hematemesis, no melena. She is constipated from time to time. No diarrhea. : She has had previous urinary tract infections most recent with E. coli, treated with Levaquin. She did fine. NECK: She has had no problems with her neck. NEUROMUSCULAR: She has severe weakness in the legs and arms with tremor. [place] to have a possible early benign tremor, but Parkinson's disease has never been completely ruled out. She has got chronic back pain with a pain pump, which has caused severe weakness in the lower legs. NEUROMUSCULAR: History of depression and severe anxiety, this has been long-standing. Has a major depressive order and does see a psychiatrist. Temperature is 97, heart rates IS in the 60s, blood pressure is 131/82, and respiratory rate is 18. EYES: Pupils are equal, round, react to light and accommodation. ENT is within normal limits. Neck is supple with midline trachea. Chest is essentially clear to auscultation. Heart is sinus rhythm. Abdomen is soft, nontender. No organomegaly. [place] skin is warm bilaterally. Patient has decrease in movement in her legs but there is no difference compared to previously. She does have good arm strength bilaterally and the same. Facial grimmest. There is no evidence of any facial asymmetry and cranial nerve 2 through 12 grossly intact. PSYCHIATRIC: She is well oriented to the person, place, and thing at this time. She was aware of this in her legs, which was extreme after physical therapy. LAB WORK: White count was 8.4. She had 12.8 hemoglobin, 240 platelet. She had a 138 sodium, 4.2 potassium, 1.6 creatinine, 51 BUN, Her sugar at this time is 119. Ammonia level was negative. Troponin was negative. Urine showed the possibility of infection with increased WBC's and some bacteria. Her urine was positive for both oxycodone and opiates, which is compatible with her history. ASSESSMENT: 1. Probable transient ischemic attack with altered mental status, some mild dehydration, urinary tract infection. 2. Long-standing history of chronic back pain on opiates with a Dilaudid pain pump. 3. History of mild diabetes mellitus, which has been well controlled. 4. Anxiety disorder with bipolar depression. 5. Severe generalized osteoarthritis. 6. History of fibromyalgia. 7. Morbid obesity. 8. Sleep apnea. PLAN: She is to continue with her same medications at this time. We cultured her urine or blood. She is being placed on telemetry per my instructions last p.m. Carotid Doppler to be done, neurological checks, started on Levaquin 500. Dr. Tamar Masterson is seeing patient and await her recommendation.
--- NOTE | 2016-05-31 10:50 | US ---
EXAMINATION TYPE: US carotid duplex BILAT DATE OF EXAM: 05/31/2016 10:26 AM COMPARISON: NONE CLINICAL HISTORY: TIA. EXAM MEASUREMENTS: RIGHT: Peak Systolic Velocity (PSV) cm/sec ----- Right CCA: 89.1 ----- Right ICA: 145.6 ----- Right ECA: 111.3 ICA/CCA ratio: 1.6 RIGHT: End Diastole cm/sec ----- Right CCA: 20.9 ----- Right ICA: 11.6 ----- Right ECA: 24.1 LEFT: Peak Systolic Velocity (PSV) cm/sec ----- Left CCA: 64.4 ----- Left ICA: 77.4 ----- Left ECA: 68.2 ICA/CCA ratio: 1.2 LEFT: End Diastole cm/sec ----- Left CCA: 12.8 ----- Left ICA: 19.2 ----- Left ECA: 24.6 VERTEBRALS (direction of flow): Right Vertebral: Antegrade Left Vertebral: Antegrade Patient had very short thick neck, she was unable to keep her chin up and had very high bifurcation. Exam very technically difficult and limited. Unable to see left ICA mid and distal. Exam is noted suboptimal per technologist's detailed above. No suspicious plaque is seen at level of right carotid bulb. Slight increased peak systolic velocity right internal carotid artery is present but no abnormal increased end diastolic velocity is seen. No suspicious plaque is seen at left caroti d bulb. Velocity measurements and ratios and visualized proximal portion of both internal carotid art eries remain within normal limits. IMPRESSION: Suboptimal study without hemodynamically significant stenosis seen in either internal ca rotid artery.
[2016-05-31 11:42] LABS: Glucose,Whole Blood 112 mg/dL (75-99)
[2016-05-31] MEDS: MULTIVITAMINS, THERA 1 EACH TAB PO SCH (12:14)
[2016-05-31 14:51] LABS: Anion Gap 11 mmol/L; Blood Urea Nitrogen 37 mg/dL (7-17); Carbon Dioxide 29 mmol/L (22-30); Chloride 100 mmol/L (98-107); Glucose 97 mg/dL (74-99); Non-African American GFR(MDRD) 57 (>60 ml/min/1.73 sqM); Sodium 140 mmol/L (137-145)
[2016-05-31] MEDS ORDERED: Potassium Replacement Protocol 1 EACH MISC MISCELLANE PRN (14:56)
[2016-05-31 16:54] LABS: Glucose,Whole Blood 96 mg/dL (75-99)
[2016-05-31] MEDS: POTASSIUM CHLORIDE ER 20 MEQ TAB.ER PO SCH ×4 (17:19→23:48)
[2016-05-31 20:07] LABS: Glucose,Whole Blood 123 mg/dL (75-99)
[2016-05-31] MEDS: ATORVASTATIN 20 MG TAB PO SCH (22:07)
[2016-06-01] MEDS ORDERED: SODIUM CHLORIDE 0.9% 500 ML IV ONE (05:43)
[2016-06-01] MEDS: FUROSEMIDE 20 MG TAB PO SCH ×3 (05:43→08:33)
[2016-06-01] MEDS: amLODIPine 10 MG TAB PO SCH ×3 (05:43→08:34)
[2016-06-01] MEDS: LOSARTAN-HCTZ 50-12.5 MG 1 EACH TAB PO SCH ×4 (05:43→08:27)
[2016-06-01 07:03] LABS: Glucose,Whole Blood 102 mg/dL (75-99)
[2016-06-01 08:13] LABS: Basophils % (A) 0 %; CH 30.5; CHCM 32.9; Eosinophils # (A) 0.2 k/uL (0-0.7); Eosinophils % (A) 3 %; HCT 31.8 % (34.0-46.0); HDW 2.29; HGB 10.5 gm/dL (11.4-16.0); Luc # (Auto) 0.16; Luc % (Auto) 2; Lymphocytes # (A) 1.6 k/uL (1.0-4.8); Lymphocytes % (A) 23 %; MCH 30.7 pg (25.0-35.0); MCV 93.2 fL (80.0-100.0); Mean Platelet Volume 7.2; Monocytes # (A) 0.5 k/uL (0-1.0); Monocytes % (A) 7 %; Neutrophils # (A) 4.7 k/uL (1.3-7.7); Neutrophils % (A) 65 %; RBC 3.41 m/uL (3.80-5.40); RDW 13.4 % (11.5-15.5); WBC 7.1 k/uL (3.8-10.6); WBC (Perox) 7.83
[2016-06-01] MEDS: GABAPENTIN 300 MG CAP PO SCH ×3 (08:14→20:54)
[2016-06-01] MEDS: ARIPiprazole 5 MG TAB PO SCH (08:14)
[2016-06-01] MEDS: DULoxetine HCL 60 MG CAPSULE.DR PO SCH ×2 (08:14→20:54)
[2016-06-01] MEDS: ACETAMINOPHEN TAB 500 MG TAB PO PRN ×3 (08:14→22:58)
[2016-06-01] MEDS: OXYBUTYNIN CHLORIDE 5 MG TAB PO SCH ×2 (08:16→20:54)
[2016-06-01] MEDS: TOPIRAMATE 25 MG TAB PO SCH ×2 (08:16→20:54)
[2016-06-01] MEDS: metFORMIN 500 MG TAB PO SCH (08:16)
[2016-06-01 08:22] LABS: Anion Gap 8 mmol/L; Blood Urea Nitrogen 33 mg/dL (7-17); Calcium 8.6 mg/dL (8.4-10.2); Carbon Dioxide 25 mmol/L (22-30); Chloride 105 mmol/L (98-107); Glucose 93 mg/dL (74-99); Non-African American GFR(MDRD) >60 (>60 ml/min/1.73 sqM); Potassium 3.6 mmol/L (3.5-5.1); Sodium 138 mmol/L (137-145)
[2016-06-01] MEDS: INSULIN LISPRO (humaLOG) 300 UNIT/3 ML VIAL SQ SCH ×4 (08:23→20:55)
[2016-06-01] MEDS ORDERED: Potassium Replacement Protocol 1 EACH MISC MISCELLANE PRN (08:28)
[2016-06-01] MEDS ORDERED: POTASSIUM CHLORIDE ER 20 MEQ TAB.ER PO SCH (09:00)
[2016-06-01] MEDS ORDERED: LEVOFLOXACIN 250MG-D5W PMX 250 MG in DEXTROSE/WATER 1 50ML.BAG IVPB SCH (09:00)
[2016-06-01] MEDS: ASPIRIN 81 MG CHEW PO SCH (09:35)
[2016-06-01 11:20] LABS: Glucose,Whole Blood 123 mg/dL (75-99)
[2016-06-01] MEDS: SODIUM CHLORIDE 0.9% 1,000 ML IV SCH ×2 (12:58→19:19)
[2016-06-01] MEDS: MULTIVITAMINS, THERA 1 EACH TAB PO SCH (12:58)
--- NOTE | 2016-06-01 14:35 | P.PN ---
Subjective Principal diagnosis: Urinary tract infection Patient is a 65-year-old female, patient of Dr. Quintana in the outpatient setting, admitted through the emergency department with chief complaint of slurred speech and difficulty with balance. Patient was found to have evidence of mild dehydration and urinary tract infection with preliminary urine culture positive for gram-negative bacilli. Patient was evaluated by Dr. Renato Masterson from neurology service for possible transient ischemic attack. Computed tomography scan of brain did not show any acute intracranial abnormality. Ultrasound of bilateral carotids did not reveal any significant stenosis. Echocardiogram with Doppler revealed preserved left ventricular systolic function with a normal EF between 60-65%. Results of EEG is pending. Last night patient was having problems with urinary retention. When patient was straight catheterized she had 1300 mL of urine in her bladder. Patient did end up needing an indwelling Rubio catheter. Over the last 24 hours, patient developed hypotension with lowest systolic pressure documented in the high 70s. Patient was given a 500 mL fluid bolus and anti-hypertensives along with diuretics were discontinued. Upon examination, patient is lying in bed complaining of chronic lumbar back pain. Patient denies any new weakness or slurred speech. Denies dysphagia, headache, diplopia, chills, nausea, vomiting , shortness of breath, chest pain, or abdominal pain. Patient reports chronic swelling to her lower extremities, right larger than left. Patient denies leg pain. Patient reports good appetite. No reported fevers overnight. No evidence of leukocytosis. Renal function has returned to normal. Objective - Vital Signs Vital signs: Vital Signs Temp 98.4 F 06/01/16 06:50 Pulse 73 06/01/16 06:50 Resp 16 06/01/16 06:50 BP 96/47 06/01/16 09:09 Pulse Ox 94 L 06/01/16 11:21 Intake & Output 05/31/16 06/01/16 06/01/16 18:59 06:59 18:59 Intake Total 300 1455 Output Total 1300 Balance 300 155 Weight 104.326 kg 77.11 kg Intake: IV 675 Sodium Chloride 0.9% 1, 675 000 ml @ 75 mls/hr IV . [id number] ON LICENSE OF [facility] Rx#:[id number] Oral 300 780 Output: Urine 1300 Straight 1300 Other: Voiding Method Bedside Commode Bedside Commode Indwelling Catheter # Voids 2 - Exam GENERAL: Pt awake and alert, well-appearing, well-nourished, and in no acute distress. HEAD: Atraumatic, normocephalic. EYES: Pupils equal, round, and reactive to light, extraocular movements intact, sclera anicteric, conjunctiva are normal. ENT: Oropharynx clear without exudates. Moist mucous membranes. Tongue smooth, pink, no lesions, protrudes in midline. NECK:Normal range of motion, supple without lymphadenopathy or JVD. No carotid bruits. Thyroid midline, small and firm without palpable masses. LUNGS: Breath sounds clear to auscultation bilaterally. No wheezes, rales, or rhonchi. HEART: Heart S1, S2, no S3 or S4. Regular rate and rhythm. No murmurs, rubs or gallops. ABDOMEN: Soft, obese, nontender, nondistended, normoactive bowel sounds. No guarding, no rebound. No masses or organomegaly appreciated. EXTREMITIES: Palpable peripheral pulses. 2+ edema to right lower extremity, 1+ edema to left lower extremity. No calf tenderness. NEUROLOGICAL: Pt oriented x 3. Cranial nerves II through XII grossly intact. Decreased strength to lower extremities bilateral. PSYCH: Normal mood, normal affect. SKIN: Warm, dry. Janae rash noted to abdominal, breast, and groin folds. - Labs CBC & Chem 7: 06/01/16 07:39 06/01/16 07:39 Labs: Abnormal Lab Results - Last 24 Hours (Table) 05/31/16 05/31/16 05/31/16 Range/Units 14:08 20:04 20:56 RBC (3.80-5.40) m/uL Hgb (11.4-16.0) gm/dL Hct (34.0-46.0) % Potassium 3.0 L* 3.2 L (3.5-5.1) mmol/L BUN 37 H (7-17) mg/dL POC Glucose (mg/dL) 123 H (75-99) mg/dL 06/01/16 06/01/16 06/01/16 Range/Units 06:49 07:39 07:39 RBC 3.41 L (3.80-5.40) m/uL Hgb 10.5 L (11.4-16.0) gm/dL Hct 31.8 L (34.0-46.0) % Potassium (3.5-5.1) mmol/L BUN 33 H (7-17) mg/dL POC Glucose (mg/dL) 102 H (75-99) mg/dL 06/01/16 Range/Units 11:18 RBC (3.80-5.40) m/uL Hgb (11.4-16.0) gm/dL Hct (34.0-46.0) % Potassium (3.5-5.1) mmol/L BUN (7-17) mg/dL POC Glucose (mg/dL) 123 H (75-99) mg/dL Assessment and Plan Plan: Impression: 1. Altered mental status suspect secondary to transient ischemic attack. 2. Urinary tract infection. Preliminary urine cultures with gram-negative bacilli. 3. Acute kidney injury suspect secondary to intravascular volume depletion secondary to hypotension secondary to hydration. 4. Urinary retention suspect secondary to possible neurogenic bladder secondary to severe low back pain with failed back surgery syndrome. Patient does have a Dilaudid pain pump. 5. Diabetes mellitus type 2, well-controlled. 6. Anxiety disorder with bipolar depression. 7. Severe generalized osteoarthritis. 8. History of fibromyalgia. 9. Morbid obesity. BMI 32.1. 10. Sleep apnea. Patient does not use CPAP on a regular basis. 11. Generalized weakness with gait dysfunction. 12. History of hypertension. 13. History of remote nicotine dependence 40 years. 14. History of chronic obstructive pulmonary disease without exacerbation. Plan: 1. Continue to monitor patient. Continue current medications. As mentioned earlier, we will hold her diuretics and antihypertensives. Continue antibiotics while we await urine and blood culture results. Continue physical therapy and await recommendations for discharge, patient may need subacute rehab placement. Continue to follow with neurology service. Will repeat labs tomorrow. The above impression and plan have been discussed and directed by Dr. Quintana. Paola ALVARADO acting as scribe for Mariano.
[2016-06-01 17:22] LABS: Glucose,Whole Blood 107 mg/dL (75-99)
[2016-06-01 20:13] LABS: Glucose,Whole Blood 140 mg/dL (75-99)
[2016-06-01] MEDS: ATORVASTATIN 20 MG TAB PO SCH (20:54)
[2016-06-01] MEDS: NYSTATIN 100,000 UNIT/GM POWD 15 GM TOPICAL SCH (20:59)
[2016-06-02 07:34] LABS: Glucose,Whole Blood 95 mg/dL (75-99)
[2016-06-02] MEDS: INSULIN LISPRO (humaLOG) 300 UNIT/3 ML VIAL SQ SCH ×4 (07:38→21:44)
[2016-06-02 08:12] LABS: Basophils % (A) 0 %; CH 30.5; CHCM 33.2; Eosinophils # (A) 0.3 k/uL (0-0.7); Eosinophils % (A) 4 %; HCT 34.3 % (34.0-46.0); HDW 2.33; HGB 11.2 gm/dL (11.4-16.0); Luc # (Auto) 0.18; Luc % (Auto) 3; Lymphocytes # (A) 1.7 k/uL (1.0-4.8); Lymphocytes % (A) 25 %; MCH 30.2 pg (25.0-35.0); MCHC 32.7 g/dL (31.0-37.0); MCV 92.5 fL (80.0-100.0); Mean Platelet Volume 7.5; Monocytes # (A) 0.4 k/uL (0-1.0); Monocytes % (A) 6 %; Neutrophils # (A) 4.5 k/uL (1.3-7.7); Neutrophils % (A) 63 %; RBC 3.71 m/uL (3.80-5.40); RDW 13.4 % (11.5-15.5); WBC 7.1 k/uL (3.8-10.6); WBC (Perox) 7.51
[2016-06-02 08:23] LABS: Anion Gap 11 mmol/L; Blood Urea Nitrogen 20 mg/dL (7-17); Calcium 9.5 mg/dL (8.4-10.2); Carbon Dioxide 25 mmol/L (22-30); Chloride 104 mmol/L (98-107); Glucose 92 mg/dL (74-99); Non-African American GFR(MDRD) >60 (>60 ml/min/1.73 sqM); Potassium 3.3 mmol/L (3.5-5.1); Sodium 140 mmol/L (137-145)
[2016-06-02] MEDS ORDERED: cefTRIAXone 1,000 MG VIAL (IM USE) IM SCH (09:00)
[2016-06-02] MEDS ORDERED: LEVOFLOXACIN 250 MG TAB PO SCH (09:00)
[2016-06-02] MEDS: ACETAMINOPHEN TAB 500 MG TAB PO PRN ×2 (09:34→14:26)
[2016-06-02] MEDS: DULoxetine HCL 60 MG CAPSULE.DR PO SCH ×2 (09:36→21:48)
[2016-06-02] MEDS: GABAPENTIN 300 MG CAP PO SCH ×3 (09:36→21:48)
[2016-06-02] MEDS: ASPIRIN 81 MG CHEW PO SCH (09:36)
[2016-06-02] MEDS: OXYBUTYNIN CHLORIDE 5 MG TAB PO SCH ×2 (09:36→21:49)
[2016-06-02] MEDS: metFORMIN 500 MG TAB PO SCH (09:36)
[2016-06-02] MEDS: ARIPiprazole 5 MG TAB PO SCH (09:36)
[2016-06-02] MEDS: TOPIRAMATE 25 MG TAB PO SCH ×2 (09:37→21:48)
[2016-06-02] MEDS: NYSTATIN 100,000 UNIT/GM POWD 15 GM TOPICAL SCH ×2 (09:37→21:49)
[2016-06-02] MEDS: SODIUM CHLORIDE 0.9% 1,000 ML IV SCH (09:37)
[2016-06-02] MEDS ORDERED: POTASSIUM CHLORIDE 20 MEQ, LIDOCAINE 2% INJ 20 MG in SODIUM CHLORIDE 0.9% 100 ML IVPB ONE (10:00)
[2016-06-02 11:35] LABS: Glucose,Whole Blood 120 mg/dL (75-99)
[2016-06-02] MEDS: POTASSIUM CHLORIDE 10 MEQ, LIDOCAINE 2% INJ 10 MG in SODIUM CHLORIDE 0.9% 100 ML IVPB SCH ×5 (12:01→22:14)
[2016-06-02] MEDS: MULTIVITAMINS, THERA 1 EACH TAB PO SCH (12:02)
[2016-06-02] MEDS: BACLOFEN 10 MG TAB PO PRN ×2 (12:39→22:14)
[2016-06-02] MEDS ORDERED: Potassium Replacement Protocol 1 EACH MISC MISCELLANE PRN (17:01)
--- NOTE | 2016-06-02 17:06 | P.PN ---
Subjective Principal diagnosis: Urinary tract infection Patient is a 65-year-old female, patient of Dr. Quintana in the outpatient setting, admitted through the emergency department with chief complaint of slurred speech and difficulty with balance. Patient was found to have evidence of mild dehydration and urinary tract infection with final urine culture positive for E. coli. Patient was evaluated by Dr. Renato Masterson from neurology service for possible transient ischemic attack. Computed tomography scan of brain did not show any acute intracranial abnormality. Ultrasound of bilateral carotids did not reveal any significant stenosis. Echocardiogram with Doppler revealed preserved left ventricular systolic function with a normal EF between 60-65%. Results of EEG is pending. Patient did experience problems with urinary retention facilitating an indwelling Rubio catheter. Ultrasound of the abdomen and bladder is pending. Patient had a problem with hypotension which corrected with a fluid bolus and discontinuation of antihypertensives. Upon examination, patient is lying in bed. Patient reports improvement in her lumbar back pain. Patient denies any new neurological deficits overnight. Denies chills, nausea, vomiting, shortness of breath, chest pain, or abdominal pain. Patient reports good appetite. Patient has been up ambulating in room with the help of walker and physical therapy. Objective - Vital Signs Vital signs: Vital Signs Temp 98.7 F 06/02/16 15:00 Pulse 90 06/02/16 15:00 Resp 20 06/02/16 15:00 BP 116/59 06/02/16 15:00 Pulse Ox 93 L 06/02/16 15:00 Intake & Output 06/01/16 06/02/16 06/02/16 18:59 06:59 18:59 Intake Total 550 700 Output Total 2300 1800 1300 Balance -2300 -1250 -600 Weight 77.11 kg Intake: IV 300 450 Sodium Chloride 0.9% 1, 300 450 000 ml @ 75 mls/hr IV . [id number] [facility] Rx#:[id number] Intake, IV Titration 250 Amount Potassium Chloride 10 meq 200 Lidocaine 2% Inj 10 mg In Sodium Chloride 0.9% 100 ml @ 100 mls/hr IVPB Q1HR [facility] Rx#:[id number] cefTRIAXone 1,000 mg In 50 Sodium Chloride 0.9% 50 ml @ 100 mls/hr IVPB Q24HR [facility] Rx#:[id number] Oral 250 Output: Urine 2300 1800 1300 Straight 1300 1300 Uretheral (Rubio) 1800 Other: Voiding Method Indwelling Catheter Indwelling Catheter Indwelling Catheter # Voids 2 - Exam GENERAL: Pt awake and alert, well-appearing, well-nourished, and in no acute distress. HEAD: Atraumatic, normocephalic. EYES: Pupils equal, round, and reactive to light, extraocular movements intact, sclera anicteric, conjunctiva are normal. ENT: Oropharynx clear without exudates. Moist mucous membranes. Tongue smooth, pink, no lesions, protrudes in midline. NECK:Normal range of motion, supple without lymphadenopathy or JVD. No carotid bruits. Thyroid midline, small and firm without palpable masses. LUNGS: Breath sounds clear to auscultation bilaterally. No wheezes, rales, or rhonchi. HEART: Heart S1, S2, no S3 or S4. Regular rate and rhythm. No murmurs, rubs or gallops. ABDOMEN: Soft, obese, nontender, nondistended, normoactive bowel sounds. No guarding, no rebound. No masses or organomegaly appreciated. EXTREMITIES: Palpable peripheral pulses. 2+ edema to right lower extremity, 1+ edema to left lower extremity. No calf tenderness. NEUROLOGICAL: Pt oriented x 3. Cranial nerves II through XII grossly intact. Decreased strength to lower extremities bilateral. PSYCH: Normal mood, normal affect. SKIN: Warm, dry. Janae rash noted to abdominal, breast, and groin folds. - Labs CBC & Chem 7: 06/02/16 07:17 06/02/16 15:56 Labs: Abnormal Lab Results - Last 24 Hours (Table) 06/01/16 06/01/16 06/02/16 Range/Units 17: 20:03 07:17 RBC 3.71 L (3.80-5.40) m/uL Hgb 11.2 L (11.4-16.0) gm/dL Potassium (3.5-5.1) mmol/L BUN (7-17) mg/dL POC Glucose (mg/dL) 107 H 140 H (75-99) mg/dL 06/02/16 06/02/16 Range/Units : 11:28 RBC (3.80-5.40) m/uL Hgb (11.4-16.0) gm/dL Potassium 3.3 L (3.5-5.1) mmol/L BUN 20 H (7-17) mg/dL POC Glucose (mg/dL) 120 H (75-99) mg/dL Assessment and Plan Plan: Impression: 1. Altered mental status suspect secondary to transient ischemic attack, Resolved. 2. Urinary tract infection. Final urine cultures with evidence of E. coli. Antibiotics has been changed to ceftriaxone. 3. Acute kidney injury suspect secondary to intravascular volume depletion secondary to hypotension secondary to hydration, resolved. 4. Urinary retention suspect secondary to possible neurogenic bladder secondary to severe low back pain with failed back surgery syndrome. Patient does have a Dilaudid pain pump. Continue indwelling Rubio urinary catheter. 5. Diabetes mellitus type 2, well-controlled. 6. Anxiety disorder with bipolar depression. 7. Severe generalized osteoarthritis. 8. History of fibromyalgia. 9. Morbid obesity. BMI 32.1. 10. Sleep apnea. Patient does not use CPAP on a regular basis. 11. Generalized weakness with gait dysfunction. 12. History of hypertension. 13. History of remote nicotine dependence 40 years. 14. History of chronic obstructive pulmonary disease without exacerbation. 15. Janae to skin folds. 16. Hypokalemia. Plan: 1. Continue to monitor patient. Continue current medications. Replace potassium per protocol.Continue to hold diuretics and antihypertensives. Patient has been evaluated by physical therapy who is recommending subacute rehabilitation upon discharge. Continue to follow with neurology service. Will repeat labs tomorrow. The above impression and plan have been discussed and directed by Dr. Quintana. Paola ALVARADO acting as scribe for Mariano.
[2016-06-02 17:33] LABS: Glucose,Whole Blood 93 mg/dL (75-99)
[2016-06-02] MEDS ORDERED: POTASSIUM CHLORIDE ER 20 MEQ TAB.ER PO SCH (18:00)
[2016-06-02 19:55] LABS: Glucose,Whole Blood 126 mg/dL (75-99)
--- NOTE | 2016-06-02 21:36 | P.PN ---
Subjective Principal diagnosis: Slurred speech ataxia The patient is a 65-year-old woman admitted to the hospital with episodes of slurred speech and weakness. She is doing better today. She is more alert and attentive. He has had a stroke workup including carotid ultrasound and echocardiogram were unremarkable. She is taking aspirin. Has been no changes in her neurologic status. She is alert and speech is fluent and there is no focal weakness detected.'s have a history of chronic right leg weakness however and she will be going to a subacute rehab center. Objective - Vital Signs Vital signs: Vital Signs Temp 98.7 F 06/02/16 15:00 Pulse 90 06/02/16 15:00 Resp 20 06/02/16 15:00 BP 116/59 06/02/16 15:00 Pulse Ox 93 L 06/02/16 15:00 Intake & Output 06/02/16 06/02/16 06/03/16 06:59 18:59 06:59 Intake Total 550 700 Output Total 1800 2900 Balance -1250 -2200 Intake: IV 300 450 Sodium Chloride 0.9% 1, 300 450 000 ml @ 75 mls/hr IV . [id number] [facility] Rx#:[id number] Intake, IV Titration 250 Amount Potassium Chloride 10 meq 200 Lidocaine 2% Inj 10 mg In Sodium Chloride 0.9% 100 ml @ 100 mls/hr IVPB Q1HR [facility] Rx#:[id number] cefTRIAXone 1,000 mg In 50 Sodium Chloride 0.9% 50 ml @ 100 mls/hr IVPB Q24HR [facility] Rx#:[id number] Oral 250 Output: Urine 1800 2900 Straight 1300 Uretheral (Rubio) 1800 Other: Voiding Method Indwelling Catheter Indwelling Catheter - Constitutional General appearance: Present: average body habitus, obese - EENT ENT: Present: hearing grossly normal - Neurologic Neurologic: Present: CNII-XII intact - Musculoskeletal Musculoskeletal: Present: generalized weakness - Labs CBC & Chem 7: 06/02/16 07:17 06/02/16 15:56 Labs: Abnormal Lab Results - Last 24 Hours (Table) 06/02/16 06/02/16 06/02/16 Range/Units 07: 07:17 11:28 RBC 3.71 L (3.80-5.40) m/uL Hgb 11.2 L (11.4-16.0) gm/dL Potassium 3.3 L (3.5-5.1) mmol/L BUN 20 H (7-17) mg/dL POC Glucose (mg/dL) 120 H (75-99) mg/dL 06/02/16 Range/Units 19:54 RBC (3.80-5.40) m/uL Hgb (11.4-16.0) gm/dL Potassium (3.5-5.1) mmol/L BUN (7-17) mg/dL POC Glucose (mg/dL) 126 H (75-99) mg/dL Assessment and Plan (1) Altered mental status Status: Acute Code(s): R41.82 - ALTERED MENTAL STATUS, UNSPECIFIED (2) Urinary tract infection Status: Acute Code(s): N39.0 - URINARY TRACT INFECTION, SITE NOT SPECIFIED (3) TIA (transient ischemic attack) Status: Acute Code(s): G45.9 - TRANSIENT CEREBRAL ISCHEMIC ATTACK, UNSPECIFIED Plan: Patient is a 65-year-old woman admitted to the hospital with altered mental status speech disturbance and general weakness. She was found to have low potassium and UTI and is being treated. She has had a stroke workup which was unremarkable. Her mental status has improved significantly. She did have an EEG which showed some general slowing but no seizure activity. Agree with discharge to subacute rehab
[2016-06-02] MEDS: ATORVASTATIN 20 MG TAB PO SCH (21:48)
--- NOTE | 2016-06-02 22:17 | US ---
EXAMINATION TYPE: US kidneys/renal and bladder DATE OF EXAM: 06/02/2016 3:11 PM COMPARISON: NONE CLINICAL HISTORY: infection. EXAM MEASUREMENTS: Right Kidney: 11.4 x8.4 x 5.9 cm Left Kidney: 11.3 x 5.2 x 5.9 cm Right Kidney: No hydronephrosis or masses seen Left Kidney: No hydronephrosis or masses seen Bladder: empty, gamez in place Bilateral Jets seen: no IMPRESSION: Normal retroperitoneal ultrasound.
[2016-06-03] MEDS: POTASSIUM CHLORIDE 10 MEQ, LIDOCAINE 2% INJ 10 MG in SODIUM CHLORIDE 0.9% 100 ML IVPB SCH ×3 (00:32→15:13)
[2016-06-03] MEDS: SODIUM CHLORIDE 0.9% 1,000 ML IV SCH ×2 (00:36→15:21)
[2016-06-03] MEDS: ACETAMINOPHEN TAB 500 MG TAB PO PRN ×2 (02:07→15:19)
[2016-06-03 05:34] LABS: Basophils % (A) 0 %; CH 30.8; CHCM 33.9; Eosinophils # (A) 0.3 k/uL (0-0.7); Eosinophils % (A) 4 %; HCT 32.4 % (34.0-46.0); HDW 2.45; HGB 11.1 gm/dL (11.4-16.0); Luc # (Auto) 0.14; Luc % (Auto) 2; Lymphocytes # (A) 1.8 k/uL (1.0-4.8); Lymphocytes % (A) 24 %; MCH 31.5 pg (25.0-35.0); MCHC 34.4 g/dL (31.0-37.0); MCV 91.5 fL (80.0-100.0); Mean Platelet Volume 7.8; Monocytes # (A) 0.4 k/uL (0-1.0); Monocytes % (A) 6 %; Neutrophils # (A) 4.8 k/uL (1.3-7.7); Neutrophils % (A) 64 %; RBC 3.54 m/uL (3.80-5.40); RDW 13.4 % (11.5-15.5); WBC 7.6 k/uL (3.8-10.6); WBC (Perox) 7.78
[2016-06-03 05:51] LABS: Anion Gap 8 mmol/L; Blood Urea Nitrogen 19 mg/dL (7-17); Calcium 9.1 mg/dL (8.4-10.2); Carbon Dioxide 25 mmol/L (22-30); Chloride 107 mmol/L (98-107); Glucose 89 mg/dL (74-99); Non-African American GFR(MDRD) >60 (>60 ml/min/1.73 sqM); Potassium 3.6 mmol/L (3.5-5.1); Sodium 140 mmol/L (137-145)
[2016-06-03 07:32] LABS: Glucose,Whole Blood 96 mg/dL (75-99)
[2016-06-03] MEDS: INSULIN LISPRO (humaLOG) 300 UNIT/3 ML VIAL SQ SCH ×4 (08:34→21:57)
[2016-06-03] MEDS: POLYETHYLENE GLYCOL 3350 17 GM POWD.PACK PO SCH (08:37)
[2016-06-03] MEDS: GABAPENTIN 300 MG CAP PO SCH ×3 (08:38→21:34)
[2016-06-03] MEDS: metFORMIN 500 MG TAB PO SCH (08:38)
[2016-06-03] MEDS: TOPIRAMATE 25 MG TAB PO SCH ×2 (08:38→21:37)
[2016-06-03] MEDS: OXYBUTYNIN CHLORIDE 5 MG TAB PO SCH ×2 (08:38→21:37)
[2016-06-03] MEDS: DULoxetine HCL 60 MG CAPSULE.DR PO SCH ×2 (08:38→21:35)
[2016-06-03] MEDS: ASPIRIN 81 MG CHEW PO SCH (08:38)
--- NOTE | 2016-06-03 10:32 | CONS ---
DATE OF CONSULTATION: 06/02/2016 REASON FOR CONSULTATION: Resistant urinary tract infection. HISTORY OF PRESENT ILLNESS: The patient is a 65-year-old female who was brought into the [facility] ER on 05/30/16; however, the patient was noticed to have some mental status changes, weak, lethargic, with some gabled speech. The patient subsequently while evaluated at the [facility] ER. The patient had a CT of the brain negative for any acute bleed. She has been followed by neurology services. The patient also noticed to have positive urine with urinary retention that did require a Rubio catheterization. UA has been positive. The patient was treated with Levaquin. However, urine cultures came back today with resistance to multiple antibiotics including Levaquin. She was switched to Rocephin. I was asked to see the patient for further recommendation. At the time of my evaluation, the patient seemed to more awake and alert. She knows she is in the hospital. The patient denies having any headache. The patient denies having any chest pain, shortness of breath or cough. No abdominal pain or any diarrhea. She was not very clear about her urinary symptoms before coming to the hospital. She did have a pain pump for chronic back pain and denies any worsening pain in the back area or any weakness in the right. REVIEW OF SYSTEMS: CONSTITUTIONAL: Positive for weakness. EYES: No complaint. ENT: No complaint. RESPIRATORY: No complaint. CARDIOVASCULAR: No complaint. GENITOURINARY: As per HPI. GASTROINTESTINAL: No complaint. MUSCULOSKELETAL: No complaint. PSYCHOLOGICAL: No complaint. ENDOCRINE: No complaint. NEUROLOGICAL: As per HPI. PAST MEDICAL HISTORY: Hypertension, osteoarthritis, fibromyalgia, diabetes mellitus, sleep apnea, chronic back pain, diverticular disease and hepatitis C. PAST SURGICAL HISTORY: Tubal ligation, breast surgery, bilateral cataracts, repair of right ( ) spinal cord nerve stimulator and permanent pain pump. SOCIAL HISTORY: Remote history of smoking. She is about 40 packs smoking; quit about 11 days ago. She denies any drinking or drug use. She is and lives with her . FAMILY HISTORY: Sister with a history of lung and brain cancer. Father with history of MD. Mother with history of MD as well. ALLERGIES: No known allergies. Medications currently include the patient is on Tylenol, Abilify, aspirin, Lipitor, baclofen, Rocephin 1 gram daily. She is on Cymbalta, Neurontin, Humalog, Glucophage, Theragran, Narcan, nystatin powder, Ditropan, MiraLAX. On examination, blood pressure is 116/59 with a pulse of 90, temperature 98.7. She is 93% on room air. General description is an elderly female lying in bed in no distress. No tachypnea or accessory muscle of respiration use. HEENT examination shows slight pallor, no scleral icterus. Oral mucous membranes dry. NECK: Trachea central. There is no thyromegaly. LUNGS: Unlabored breathing. Clear to auscultation anteriorly. HEART: S1, S2. Regular rate and rhythm. ABDOMEN: Soft. No tenderness. EXTREMITIES: No edema of feet. SKIN EXAMINATION: No rashes, no mass palpable. NEUROLOGICAL: The patient is awake and alert, oriented x3. Mood and affect normal. LABS: BUN of 20 with a creatinine 0.85, potassium low at 3.3. Hemoglobin is 11.1, white count 7.1. UA has been positive with large leukocyte esterase, 49 WBC. Urine drug screen positive for opiates and oxycodone. Blood culture negative. Urine showing an E. coli that is resistant to multiple antibiotics though sensitive to Rocephin. DIAGNOSTIC IMPRESSION AND PLAN: Patient admitted to hospital with mental status changes, weakness and lethargy which is likely multifactorial and does have a component of Gram-negative urinary tract infection resistant to multiple antibiotics including Levaquin, which the patient is already on. PLAN: 1. Rocephin 1 gram IV piggyback daily. 2. IV fluid. 3. Depending on clinical response and if overall improvement, she will be able to finish therapy with oral antibiotic therapy in the form of Ceftin. Thank you for this consultation. We will follow this patient along with you.
--- NOTE | 2016-06-03 11:12 | EEG ---
DATE OF SERVICE: 06/01/2016 INDICATIONS FOR EXAMINATION: This patient is a 65-year-old female being evaluated for altered mental status and urosepsis. AGE: 65Y FINDINGS: A routine 21-channel awake digital EEG recording was accomplished utilizing the 10 to 20 international system with bipolar and referential montages. The background activity in the most alert resting state consists of a low to medium amplitude poorly developed and poorly sustained 6 Hz activity over the posterior head regions. This posterior rhythm attenuates minimally to eye opening. There is a small amount of lo amplitude 18 to 20 Hz beta activity seen maximally over the anterior head regions. Muscle and movement artifact was observed only on a few occasions during the tracing. Hyperventilation was not performed. Photic stimulation at flash frequencies of 2 to 30 Hz produced a minimal occipital driving response. No epileptiform discharges were seen. IMPRESSION: This EEG gives evidence of a severe widespread diffuse disturbance in cerebral function. The EEG failed to reveal any focal, lateralizing or epileptiform abnormalities. If clinically indicated, a followup EEG is recommended. Clinical correlation is recommended.
[2016-06-03] MEDS: BACLOFEN 10 MG TAB PO PRN ×2 (11:20→21:34)
[2016-06-03] MEDS: ARIPiprazole 5 MG TAB PO SCH (11:21)
[2016-06-03] MEDS: NYSTATIN 100,000 UNIT/GM POWD 15 GM TOPICAL SCH ×2 (11:25→21:38)
[2016-06-03 12:00] LABS: Glucose,Whole Blood 110 mg/dL (75-99)
--- NOTE | 2016-06-03 13:46 | P.DS ---
Providers Date of admission: 05/30/16 19:06 Expected date of discharge: 06/03/16 Attending physician: Timothy Quintana Consults: 06/02/16 07:50 Consult Physician Routine Consulting Provider: Umang Caro Consult Reason/Comments: E-coli in urine Do you want consulting provider notified?: Yes Primary care physician: Timothy Quintana Hospital Course: Patient is a 65-year-old female, patient of Dr. Quintana in the outpatient setting, admitted through the emergency department with chief complaint of slurred speech and difficulty with balance. Patient was found to have evidence of mild dehydration and urinary tract infection with final urine culture positive for E. coli. Patient was evaluated by Dr. Renato Masterson from neurology service for possible transient ischemic attack. Computed tomography scan of brain did not show any acute intracranial abnormality. Ultrasound of bilateral carotids did not reveal any significant stenosis. Echocardiogram with Doppler revealed preserved left ventricular systolic function with a normal EF between 60-65%. Results of EEG is pending. Patient did experience problems with urinary retention facilitating an indwelling Rubio catheter, which was later removed.. Ultrasound of the abdomen and bladder is pending. Patient had a problem with hypotension, which corrected with a fluid bolus and discontinuation of antihypertensives. Patient was also evaluated by Dr. Caro from infectious disease service, who recommended that patient be discharged on Ceftin for urinary tract infection. Patient was evaluated by physical therapy and occupational therapy recommended the patient be discharged to subacute rehab. Patient and agreeable and preferred [facility] [place]. Patient improved significantly and was deemed stable for discharge with close follow-up in the outpatient setting. Discharge diagnoses: 1. Altered mental status suspect secondary to transient ischemic attack, Resolved. 2. Urinary tract infection. Final urine cultures with evidence of E. coli. Antibiotics has been changed to ceftriaxone. 3. Acute kidney injury suspect secondary to intravascular volume depletion secondary to hypotension secondary to hydration, resolved. 4. Urinary retention suspect secondary to possible neurogenic bladder secondary to severe low back pain with failed back surgery syndrome. Patient does have a Dilaudid pain pump. Continue indwelling Rubio urinary catheter. 5. Diabetes mellitus type 2, well-controlled. 6. Anxiety disorder with bipolar depression. 7. Severe generalized osteoarthritis. 8. History of fibromyalgia. 9. Morbid obesity. BMI 32.1. 10. Sleep apnea. Patient does not use CPAP on a regular basis. 11. Generalized weakness with gait dysfunction. 12. History of hypertension. 13. History of remote nicotine dependence 40 years. 14. History of chronic obstructive pulmonary disease without exacerbation. 15. Janae to skin folds. The above impression and plan have been discussed and directed by Dr. Quintana. Paola ALVARADO acting as scribe for Dr. Quintana. Pertinent Studies: EKG; brain CT; chest x-ray; echocardiogram with Doppler; carotid Doppler study; EEG; abdomen/bladder ultrasound Patient Condition at Discharge: Good Plan - Discharge Summary New Discharge Prescriptions: Baclofen [Lioresal] 10 mg PO Q8H PRN #21 tab PRN Reason: Pain Cefuroxime Axetil [Ceftin] 500 mg PO BID #14 tab LORazepam [Ativan] 1 mg PO TID PRN #21 tablet PRN Reason: Anxiety oxyCODONE-APAP 7.5-325MG [Percocet 7.5-325 mg] 1 tab PO HS PRN #7 tab PRN Reason: Moderate To Severe Pain Discharge Medication List DULoxetine HCL [Cymbalta] 60 mg PO BID 09/24/14 [History] Simvastatin [Zocor] 40 mg PO HS 09/24/14 [History] ARIPiprazole [Abilify] 5 mg PO QAM 03/18/15 [History] Topiramate [Topamax] 25 mg PO BID 05/05/15 [History] metFORMIN HCL [Glucophage] 500 mg PO DAILY 05/05/15 [History] Oxybutynin Chloride [Ditropan] 5 mg PO BID 12/03/15 [History] Multivitamins, Thera [Multivitamin (formulary)] 0.5 tab PO DAILY 03/30/16 [ History] Gabapentin 600 mg PO TID 05/30/16 [History] Pain Pump 1 pump SQ-PUMP DAILY PRN 05/30/16 [History] Acetaminophen Tab [Tylenol] 500 mg PO Q4HR PRN #0 tab 06/03/16 [Rx] Aspirin 81 mg PO DAILY chew 06/03/16 [Rx] Baclofen [Lioresal] 10 mg PO Q8H PRN #21 tab 06/03/16 [Rx] Cefuroxime Axetil [Ceftin] 500 mg PO BID #14 tab 06/03/16 [Rx] INSULIN LISPRO (humaLOG) [humaLOG (formulary)] 0 unit SQ ACHS vial 06/03/16 [Rx ] LORazepam [Ativan] 1 mg PO TID PRN #21 tablet 06/03/16 [Rx] Nystatin 100,000 Unit/gm Powd [Mycostatin Powder] 1 applic TOPICAL BID applic 06/03/16 [Rx] Polyethylene Glycol 3350 [Miralax] 17 gm PO DAILY powd.pack 06/03/16 [Rx] oxyCODONE-APAP 7.5-325MG [Percocet 7.5-325 mg] 1 tab PO HS PRN #7 tab 06/03/16 [ Rx] Follow up Appointment(s)/Referral(s): Timothy Quintana MD [Primary Care Provider] - 1-2 days Discharge Disposition: TRANSFER TO SNF/ECF
[2016-06-03] MEDS: MULTIVITAMINS, THERA 1 EACH TAB PO SCH (15:13)
--- NOTE | 2016-06-03 17:04 | PN ---
DATE OF SERVICE: 06/03/2016 Reason for follow-up is Escherichia coli urinary tract infection. INTERVAL HISTORY: The patient is afebrile. She is breathing comfortably. Denies significant chest pain. No shortness of breath or cough. No abdominal pain or any diarrhea. On examination, blood pressure 117/55 with a pulse of 68, temperature 98.1. She is 96% on room air. General description is an elderly female lying in bed in no distress. RESPIRATORY SYSTEM: Unlabored breathing. Clear to auscultation. HEART: S1, S2. Regular rate and rhythm. ABDOMEN: Soft. No tenderness. LABS: Hemoglobin is 11.1, white count 7.6 with a BUN of 19, creatinine 0.9. DIAGNOSTIC IMPRESSION AND PLAN: Patient with Escherichia coli urinary tract infection. The patient did tolerate Rocephin and ( ). Plan to finish therapy with p.o. Ceftin 500 mg twice a day for another 10 days with outpatient follow-up. Continue supportive care.
[2016-06-03 17:06] LABS: Glucose,Whole Blood 110 mg/dL (75-99)
[2016-06-03] MEDS: ATORVASTATIN 20 MG TAB PO SCH (21:35)
[2016-06-03 22:16] LABS: Glucose,Whole Blood 96 mg/dL (75-99)
[2016-06-04] MEDS: ACETAMINOPHEN TAB 500 MG TAB PO PRN ×2 (02:46→12:22)
[2016-06-04 07:31] LABS: Glucose,Whole Blood 92 mg/dL (75-99)
[2016-06-04 07:38] VITALS: BP 136/71; PULSE 77; RESP 20; TEMP 97.2
[2016-06-04] MEDS: MULTIVITAMINS, THERA 1 EACH TAB PO SCH (07:52)
[2016-06-04] MEDS: POLYETHYLENE GLYCOL 3350 17 GM POWD.PACK PO SCH (07:52)
[2016-06-04] MEDS: OXYBUTYNIN CHLORIDE 5 MG TAB PO SCH (07:52)
[2016-06-04] MEDS: metFORMIN 500 MG TAB PO SCH (07:52)
[2016-06-04] MEDS: GABAPENTIN 300 MG CAP PO SCH (07:52)
[2016-06-04] MEDS: ASPIRIN 81 MG CHEW PO SCH (07:53)
[2016-06-04] MEDS: INSULIN LISPRO (humaLOG) 300 UNIT/3 ML VIAL SQ SCH (07:53)
[2016-06-04] MEDS: ARIPiprazole 5 MG TAB PO SCH (07:53)
[2016-06-04] MEDS: DULoxetine HCL 60 MG CAPSULE.DR PO SCH (07:53)
[2016-06-04] MEDS: TOPIRAMATE 25 MG TAB PO SCH (07:53)
[2016-06-04] MEDS: NYSTATIN 100,000 UNIT/GM POWD 15 GM TOPICAL SCH (09:06)
[2016-06-04] MEDS: BACLOFEN 10 MG TAB PO PRN (09:06)
[2016-06-04] MEDS: SODIUM CHLORIDE 0.9% 1,000 ML IV SCH (09:39)
[2016-06-04] MEDS ORDERED: CEFUROXIME 250 MG TAB PO SCH (21:00)
--- NOTE | 2016-06-05 08:10 | DS ---
DATE OF ADMISSION: 05/30/2016 DATE OF DISCHARGE: 06/04/2016 A 65-year-old white female that came in to the hospital with altered mental status and urinary tract infection with E. coli resistant infection. She also had acute kidney injury due to decreased volume, hypotension secondary to some dehydration. She has a long-standing history of urinary retention, severe chronic degenerative disc disease, status post surgery, diabetes mellitus, chronic obstructive pulmonary disease, previous nicotine dependence for 40 years and a history of sleep apnea on CPAP. Here in the hospital we maintained her on IV antibiotics. Hydration was brought. She was evaluated also by Dr. Caro of infectious disease and also Dr. Mary Masterson. EEG, echocardiogram, carotid Doppler, CT of the brain all came back that were within normal limits. We also looked an ultrasound of the abdomen for kidneys and that was normal too. At this time she is being discharged to [facility]. REVIEW OF SYSTEMS: CARDIOPULMONARY: No shortness of breath. No chest pain, orthopnea, no paroxysmal nocturnal dyspnea. GI: No hematemesis, melena, hematochezia. GENITOURINARY: She has had her Rubio out, but she is urinating well. NEUROMUSCULAR: Strength in her lower legs are still very weak but she was able to get up and get to a chair with the help of physical therapy. Labs this morning: We are just watching her blood sugars at this time. Hematologically nothing was completed since yesterday. SOCIAL HISTORY: Again she is . 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 She lives with her , who was superintendent terminal and previous teacher [employer]. She did smoke for a good 40 years. PHYSICAL EXAMINATION: At this time vital signs show a blood pressure of 136/71, heart rate is in the 70s, respiratory rate was 20, saturation 92. EYES: Pupils are equal, round, react and accommodation. ENT: Showed tympanic membranes and pharynx to be negative. NECK: Supple with a midline trachea. CHEST: Essentially clear to auscultation. HEART: Sinus rhythm with no murmur. ABDOMEN: Obese but no large organomegaly. No real palpable masses. No pain or tenderness. Negative rebound. LOWER EXTREMITY: Swelling is there, but much less because of her legs are elevated at this period of time. ASSESSMENT: 1. Altered mental status. 2. Urinary tract infection with E. coli resistance on ceftriaxone. 3. Acute tubular necrosis from intervascular volume depletion, hypotension and dehydration. 4. Urinary retention with a neurogenic bladder secondary severe previous surgery. 5. The patient has severe degenerative disc disease with chronic lumbar stenosis and the patient is on a Dilaudid pain pump. 6. Diabetes type 2, which is well controlled. 7. Anxiety disorder and bipolar disorder, which is normal. 8. Obesity with a BMI 32.1. 9. Fibromyalgia, which is stable. 10. Generalized osteoarthritis. 11. She is nicotine dependent. 12. Chronic obstructive pulmonary disease. 13. Hypertension. 14. Generally gait and strength dysfunction, unable to ambulate. 15. She also has generalized candidiasis underneath the breast taken care of with Mycostatin powder. 16. Chronic constipation and that has responded well to polyethylene glycol p.r.n. PLAN: She will continue with her oral antibiotics, ceftriaxone, which she has been converted to. Will continue with all her other present medications. She is being discharged to [facility] and will follow her until that is complete. Physical therapy is also continued. She did have it this a.m.
--- NOTE | 2016-06-08 09:08 | CDI ---
In responding to this query, please exercise your independent professional judgment. The [facility] Coding Staff and Clinical Documentation Specialists appreciate your assistance in clarifying documentation, maintaining compliance with coding guidelines, accurately documenting patients condition and capturing severity of illness. The fact that a question is asked does not imply that any particular answer is desired or expected. Communication forms are a method of clarifying documentation and are not made part of the Legal Health Record. Thank you in advance for your clarification. Last Revision, December 2014 Date: 06/08/2016 8:55:00 AM From: Danitza Jason/Brenda Camacho, Manager Furniture Admit Date: 05/30/2016 7:06:00 PM Patient Name: Jenny Tamayo Visit Number: [id number] Discharge Date: Dr. Timothy Quintana Patient presented with altered mental status, slurred speech, difficulty with balance, dehydration and UTI. Neurology was consulted and Ms. Tamayo was worked up for possible TIA. The most recent discharge summary states altered mental status but does not clarify the possible TIA. In your professional opinion, can you please clarify ____? TIA ruled out TIA ruled in Other underlying cause of the altered mental status Unable to determine Please document in your progress notes and discharge summary in order to capture severity of illness and risk of mortality. Include clinical findings that support your diagnosis. FYI: Press F11 to launch patient chart. Place X here if this finding has no clinical significance, is not applicable or if you are not able to provide any additional documentation. LALO
--- NOTE | 2016-06-08 11:34 | DS ---
ADDENDUM: DATE OF ADMISSION: 05/30/2016 DATE OF DISCHARGE: 06/04/2016 DATE OF SERVICE: 06/04/2016 ADDITIONAL DISCHARGE DIAGNOSES FOR DISCHARGE: 1. Altered mental status. 2. Transient ischemic attack. 3. Altered mental status worsened by hypotension secondary to transient ischemic attack, AB intravascular volume depletion with hypotension and dehydration and possible urinary tract infection bacteremia.
== END 2016-06-04 12:35 | DRG 683 ==
LOC: EC 13:12 → 5MS5E 19:06
PROVIDERS: ADMIT Family Medicine; ATTEND Family Medicine
DX: N17.0 Acute kidney failure with tubular necrosis (principal); G45.9 Transient cerebral ischemic attack, unspecified; E66.01 Morbid (severe) obesity due to excess calories; N31.9 Neuromuscular dysfunction of bladder, unspecified; J44.9 Chronic obstructive pulmonary disease, unspecified; B37.2 Candidiasis of skin and nail; N39.0 Urinary tract infection, site not specified; E11.9 Type 2 diabetes mellitus without complications; I10 Essential (primary) hypertension; B96.20 Unspecified Escherichia coli [E. coli] as the cause of diseases classified elsewhere; E86.0 Dehydration; G89.29 Other chronic pain; Z79.891 Long term (current) use of opiate analgesic; M54.5 Low back pain; F41.9 Anxiety disorder, unspecified; F31.9 Bipolar disorder, unspecified; M15.9 Polyosteoarthritis, unspecified; M79.7 Fibromyalgia; G47.30 Sleep apnea, unspecified; Z79.899 Other long term (current) drug therapy; Z79.84 Long term (current) use of oral hypoglycemic drugs; K57.90 Diverticulosis of intestine, part unspecified, without perforation or abscess without bleeding; B19.20 Unspecified viral hepatitis C without hepatic coma; Z68.32 Body mass index [BMI] 32.0-32.9, adult; E87.6 Hypokalemia; K59.09 Other constipation; F17.200 Nicotine dependence, unspecified, uncomplicated; M48.06 Spinal stenosis, lumbar region; E78.5 Hyperlipidemia, unspecified; Z79.82 Long term (current) use of aspirin; Z81.8 Family history of other mental and behavioral disorders; Z82.49 Family history of ischemic heart disease and other diseases of the circulatory system
CPT/HCPCS: 36415; 70450; 71010; 76770; 80048; 80053; 80306; 81001; 82140; 83036; 83605; 84132; 84484; 85025; 87040; 87077; 87086; 87186; 93005; 93306; 93880; 94760; 95816; 96365; 96375; 99285

== ENCOUNTER → 2016-06-29 | Day surgery (SDC) | payer MEDICARE ==
[2016-06-29 12:41] VITALS: BP 174/92; PULSE 68; RESP 18; TEMP 98.8
--- NOTE | 2016-06-29 13:25 | P.PCN ---
Date of Procedure: 06/29/16 Preoperative Diagnosis: Postoperative Diagnosis: Procedure(s) Performed: OPERATION: Intrathecal pain pump analysis, programming and reprogramming, and intrathecal pain pump refill. PREOPERATIVE DIAGNOSES: 1. near empty intrathecal pain pump time for refill. 2. opioid tolerance 3. failed back surgery syndrome lumbar area POSTOPERATIVE DIAGNOSES: 1. near empty intrathecal pain pump time for refill. 2. opioid tolerance 3. failed back surgery syndrome lumbar area ANESTHESIA: None. CONDITION: Stable. Description of the procedure; Intrathecal pain pump analysed ,it showed patient currently had reservoir volume[ 17,4 ] mL. The patient is receiving medication Dilaudid 3 mg/ml. Patient receiving daily dose of 0.74 mg/day Pain is well controlled , patient using medication for breakthrough pain Percocet 7.5/325 every 6 hours orally . The location of the pump ( Right Buttuck ) Prepped with chlorhexidine x3 , then using 22-gauge needle [employer] kit advanced through the pump port, Total of [ 19 ] ml removed from the pump, the pump refills with the new medication total volume [ 40 ] ml . The concentration of Dilaudid [ 3 ] mg /ml . The patient will continue to see the daily dose of Dilaudid[ 0.82 ] mg/day and patient will follow up with the pain clinic in 3 months. Patient was complaining of increased pain in her pain level 7-8 on the time for this reason I increased the intrathecal dose of pain medication, and patient will continue to receive Percocet 7.5/325 twice a day when necessary total of 30 with 2 refills, refill for baclofen 10 mg 3 times a day dispense 90 with 2 refills and Neurontin 600 mg 3 times a day with 2 refills Implants: Indications for Procedure: Operative Findings: Description of Procedure:
== END ==
LOC: PNWHC3 12:07
PROVIDERS: ATTEND Specialist
DX: M96.1 Postlaminectomy syndrome, not elsewhere classified (principal); Z45.1 Encounter for adjustment and management of infusion pump; Z79.891 Long term (current) use of opiate analgesic
CPT/HCPCS: 62370

== ENCOUNTER → 2016-09-21 | Day surgery (SDC) | payer MEDICARE ==
[2016-09-21 12:32] VITALS: BP 153/92; PULSE 76; RESP 18; TEMP 98.3
--- NOTE | 2016-09-21 12:59 | P.PN ---
Progress Note - Text PROCEDURE: Intrathecal pain pump analysis, programming and reprogramming, and intrathecal pain pump refill. PREOPERATIVE DIAGNOSES: 1. near empty intrathecal pain pump time for refill. 2. opioid tolerance 3. lumbar PLPS POSTOPERATIVE DIAGNOSES: 1. near empty intrathecal pain pump time for refill. 2. opioid tolerance 3. lumbar PLPS ANESTHESIA: None. CONDITION: Stable. INDICATION: This is a 66-year-old patient with a long history of chronic pain secondary to PLPS. Patient previously had an intrathecal pump placed, which is now close to empty, and patient presents for refill today. Patient denies any side effects of the intrathecal medication, including new weakness, new numbness , excessive drowsiness or sleepiness, nausea/vomiting, weight gain, or night sweats. Patient also denies suicidal ideation, and reports that the current pain medication is helping control the chronic pain and improve the patient's activities of daily living. DESCRIPTION: The intrathecal pain pump was analyzed and showed that the patient currently has reservoir volume of [17.1] mL. The patient is receiving intrathecal Dilaudid PF at concentration [3] mg/ ml. Patient receiving daily dose of Dilaudid PF [0.82] mg/day. The location of the pump (right buttock) was prepped with chlorhexidine x3. Then, the 22-gauge needle from the [place] kit was advanced through the pump port. Total of [18] ml was removed from the pump, and it was refilled with the new medication total volume of [40] ml of a solution containing intrathecal Dilaudid PF at concentration [3] mg/ ml. We will increase daily dose 10% Dilaudid PF [0.90] mg/day. The patient is using some oral medications as well, specifically Percocet 7.5/ 325 mg daily prn pain orally for breakthrough pain and Baclofen 10 mg TID. This was increased slightly and the patient was given three months' worth of these medications (Percocet 7.5/325 #120 total for three months' supply and baclofen 10 mg #90 with two refills). Patient has moved to [facility] and will be referred to pain clinic in [place] for further management.
== END ==
LOC: PNWHC3 11:49
PROVIDERS: ATTEND Anesthesiology
DX: G89.29 Other chronic pain (principal); Z45.1 Encounter for adjustment and management of infusion pump; Z79.891 Long term (current) use of opiate analgesic
CPT/HCPCS: 62370